=== PATIENT | male | born 1935 | race Caucasian/White ===

== ENCOUNTER 2016-09-04 11:04 | Inpatient (IN) | payer MEDICARE, OTHER ==
--- NOTE | ~2016-09-04 | HP ---
History And Physical [id number] [facility] [place]. [address] NAME: DOC GREENBERG : 36 STATUS : ADM Александр PAT#: [id number] AGE: 80 ADM/REG DATE : 09/04/16 MR#: [id number] REPORT SERV DATE: 09/04/16 DICTATED BY: ZANE LOZA DATE: 09/04/16 REPORT STATUS : Draft TRANSCRIBED BY: MODL DATE: 09/04/16 DATE OF ADMISSION: 09/04/2016 CHIEF COMPLAINT: Shortness of breath. HISTORY OF PRESENT ILLNESS: The patient is a very pleasant 80-year-old white male. He is hard of hearing, so much of my communication is with his granddaughter who is at bedside. She does live with the patient. Apparently, he became ill about a week ago Sunday 9 days prior to arrival, he developed some lower extremity edema and some orthopnea. He then developed a cough, congestion, and was seen in Urgent Care Clinic on that following . At that time, he was given some steroids, antibiotic, and ultimately sent out. He then returned to the clinic yesterday, was given another steroid shot, again an antibiotic, and sent home on a prednisone taper. He has had coughing. He does not really cough much in the way of sputum, it is clear. He has had no fever, no chills, no nausea, vomiting, or diarrhea. No real abdominal pain. No chest pain. He has had leg swelling since about 9 days ago which involves his leg up to about the mid thigh. He has had orthopnea and PND and despite the above measures to treat the bronchitis, he has failed to improve. He has no known history of heart failure. His last EF however was diminished at 42% in April of 2016 when he was here for an episode of GI bleeding. At that time, he had some 6 endoscopy procedures for an ulcer that bled with a visible vessel. In addition, he had an episode of atrial fibrillation which was thought to be new onset with RVR. He was deemed not a candidate for anticoagulation at that time due to extensive GI bleeding and multiple transfusions. He does still have atrial fibrillation and is primarily under rate control, management plan with no plans for anticoagulation. PAST MEDICAL HISTORY: 1. CKD with baseline creatinine around 2. 2. Atrial fibrillation, not on anticoagulation. 3. Diabetes mellitus. 4. Hypertension. 5. Osteoarthritis. 6. Peptic ulcer disease with multiple endoscopies requiring blood transfusion back in 03/2016. 7. Obstructive sleep apnea, but does not wear CPAP but wears nocturnal oxygen at 2 L. 8. Gout. 9. Hard of hearing. SURGICAL HISTORY: Carpal tunnel release, cataract repair, and a TURP. SOCIAL HISTORY: He is a nondrinker, nonsmoker. He lives with a granddaughter. FAMILY HISTORY: Father with hypertension, heart disease, and dementia. HOME MEDICATIONS: Reviewed and attached. REVIEW OF SYSTEMS: History And Physical [address] [address] NAME: DOC GREENBERG : 37 STATUS : ADM Александр PAT#: [id number] AGE: 80 ADM/REG DATE : 09/04/16 MR#: [id number] REPORT SERV DATE: 09/04/16 DICTATED BY: ZANE LOZA DATE: 09/04/16 REPORT STATUS : Draft TRANSCRIBED BY: CRYSTAL DATE: 09/04/16 Full 10-point review of systems obtained with pertinent positives already mentioned in the HPI. PHYSICAL EXAMINATION: VITAL SIGNS: Blood pressure 131/74, pulse 85, respiratory rate 18, sats are 98% on 2 L, and temperature is 97.2. GENERAL: Obese white male. HEENT: Normocephalic, atraumatic. Throat is clear. NECK: Supple. HEART: Regular rate and rhythm. LUNGS: He has rhonchorous breath sounds but he also has expiratory wheezing noted about assisted up the lung field and some very discreet crackles at the bases. ABDOMEN: Soft, nontender, nondistended. EXTREMITIES: Warm and dry. He has 2+ pitting edema to about the mid thigh. NEUROLOGIC: He is alert. He is hard of hearing. He is oriented to person, place, and time. He answers questions appropriately. He moves all four extremities symmetrically. LABORATORY AND X-RAY: H and H 9.2 and 27.6, white count is 6.8, and platelets 240. Troponin is 0.06. BNP is 811. Coags are normal. Sodium 135, potassium 4.9, chloride 95, CO2 of 28, BUN and creatinine 38 and 2.17. Glucose 236. Troponin 0.06. EKG shows atrial fibrillation but rate controlled. No acute ST-T wave changes. ASSESSMENT/PLAN: 1. Hypoxemic respiratory failure with evidence of pulmonary edema on chest x-ray. Lower extremity edema. Elevated cardiac BNP. Orthopnea and PND. Certainly raises suspicion that these symptoms could be due to heart failure despite wheezing which could certainly be cardiac. I think it is reasonable to treat the patient with heart failure exacerbation symptoms. We will repeat his echo since he has a troponin of 0.06 and new onset heart failure which he has not had in the past. We will also diurese him overnight. We will add a beta-sierra if his heart rate will tolerate it. I would not start an OG as he has chronic kidney disease at this point. We will monitor in's and out's, daily weights, and see if he responds to diuresis. We will do two more sets of cardiac enzymes and place him on a monitored bed. Repeat his EKG in the morning. 2. Possible pneumonia versus bronchitis. The patient has had cough, congestion, however, he has no white count nor fever. Some of his symptoms are consistent with heart failure. I think we still have to consider based on his chest x-ray findings and the fact that he is wheezing on exam. I am going to get a procalcitonin, some sputum cultures, blood cultures. Repeat his chest x-ray tomorrow after diuresis and see how his chest x-ray looks. I will cover him overnight for pneumonia just to be certain that we are covering all the possibilities here. He was on a prednisone taper. I am going to go ahead and complete his taper while he is here. This was started for possible bronchitis or reactive airway disease. Also place him on some DuoNebs. Hopefully with diuresis, his symptoms will improve and we can simplify his regimen and have a clear picture of the exact etiology. 3. CKD stable at baseline. We will need to follow closely with diuresis. 4. History of atrial fibrillation, deemed not a candidate for anticoagulation given significant GI bleeding in the past. Currently rate controlled is our only option. He History And Physical [address] [place]. [address] NAME: DOC GREENBERG : 37 STATUS : ADM Александр PAT#: [id number] AGE: 80 ADM/REG DATE : 09/04/16 MR#: [id number] REPORT SERV DATE: 09/04/16 DICTATED BY: ZANE LOZA DATE: 09/04/16 REPORT STATUS : Draft TRANSCRIBED BY: CRYSTAL DATE: 09/04/16 is currently on Cardizem as well as digoxin. He is going to get a low-dose beta sierra for possible heart failure. We will see how his heart rate tolerates it if his heart rate drops below 60, then we will hold his calcium channel sierra. We will continue with plan for rate control. 5. GISELE, on nocturnal O2. 6. Diabetes mellitus. We will add level 2 sliding scale. 7. History of hypertension. 8. History of significant GI bleeding in 03/2016. Continue PPI therapy b.i.d. 9. Deep venous thrombosis prophylaxis with subcutaneous heparin. 10.Disposition pending above aforementioned plan and workup. ZURI/CRYSTAL Zane Loza M.D. / [id number] CC: Zane Loza M.D.
--- NOTE | ~2016-09-04 | IDS ---
Interim Discharge Summary [facility] [address] [place]. [address] NAME: DOC GREENBERG : 37 STATUS : ADM IN PAT#: [id number] AGE: 80 ADM/REG DATE : 09/04/16 MR#: [id number] REPORT SERV DATE: 09/18/16 DICTATED BY: IGNACIO KU DATE: 09/18/16 REPORT STATUS : Draft TRANSCRIBED BY: MODL DATE: 09/18/16 ADMISSION DATE: 09/04/2016 DISCHARGE DATE: CURRENT HOSPITAL DIAGNOSES: 1. Encephalopathy, multifactorial. 2. Congestive heart failure. 3. Chronic kidney disease. 4. Atrial fibrillation. 5. Diabetes. 6. Obstructive sleep apnea. 7. Hypertension. 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 No acute intracranial pathology. Mild motion degraded exam of the posterior fossa and skull base. CURRENT PHYSICAL FINDINGS AND HPI: Please see initial dictated H and P by Dr. Beckford as well as interim summary by Dr. Jackman on the and summary by myself on the . This dictation will continue from that point. The patient had been evaluated by Renal and by Cardiology. Arrangements have been made for placement at [facility]. He had repeat speech therapy evaluation. He was cleared to take p.o. and the patient was scheduled to go to [facility]. However, at that time, he became acutely confused and the transfer was held. He was rescanned re-screened for possible etiologies at that time and an ABG, chest x-ray, and UA were done. His urinalysis was suggestive of UTI. He was started on appropriate treatment cultures, not grown at any significant pathogens. Renal continued to follow and adjusted his diuretics pending his intake, his heart failure and his renal function numbers. He also has ammonia checked which was normal. On the , after talking further with family, a CT scan was done because he has atrial fib, not on anticoagulants secondary to GI bleed and there was no abnormality noted. His diuretics were continued, p.r.n. Ativan was given for agitation. On the , his diuretics were further titrated and he was placed on p.o. antibiotics. On the , he required some mild electrolyte replacement. He was slowly improving on his cognitive abilities and ability to follow commands. He still was eating very minimal. On the , after a long discussion with his granddaughter and power of employment attorney, she requests GI evaluation for feeding tube placement as he has had no significant intake over the majority of his hospital stay given his unstable medical condition initially when he came in and his onset of confusion and inability to eat at this time. Pending GI's evaluation and tube placement, he will go to [facility] for rehab after decision is made with continued adjustment of his diuretics per Renal. TLF/MODL Interim Discharge Summary [address] [address] NAME: DOC GREENBERG : 37 STATUS : ADM IN PAT#: [id number] AGE: 80 ADM/REG DATE : 09/04/16 MR#: [id number] REPORT SERV DATE: 09/18/16 DICTATED BY: IGNACIO KU DATE: 09/18/16 REPORT STATUS : Draft TRANSCRIBED BY: MODL DATE: 09/18/16 Ignacio Ku M.D. / [id number] CC: Ignacio Ku M.D.
--- NOTE | ~2016-09-04 | IDS ---
Interim Discharge Summary [facility] [address] [place]. [address] NAME: DOC GREENBERG : 37 STATUS : ADM IN [facility]#: [id number] AGE: 80 ADM/REG DATE : 09/04/16 MR#: [id number] REPORT SERV DATE: 09/11/16 DICTATED BY: ROLO SALES DATE: 09/11/16 REPORT STATUS : Draft TRANSCRIBED BY: MODL DATE: 09/11/16 ADMISSION DATE: 09/04/2016 DISCHARGE DATE: CONSULTING PHYSICIANS: Dr. Fox for Cardiology, he signed off, and Dr. Mohan for Renal and is still on the case. INTERIM DIAGNOSES: 1. Acute on chronic hypoxic respiratory failure. 2. Acute on chronic systolic congestive heart failure. 3. Acute kidney injury on chronic kidney disease 3. 4. Hypertension. 5. Coronary artery disease. 6. Atrial fibrillation. 7. Benign prostatic hypertrophy. 8. Diabetes mellitus with episodes of hypoglycemia, resolved. 9. Obstructive sleep apnea. 10.History of GI bleed and peptic ulcer disease. 11.Status post hypokalemia. 12.History of right renal artery stenosis. 13.Hypothyroidism. DIAGNOSTIC EXAMS: Chest x-ray showing bilateral perihilar infiltrates, bilateral pleural fluid. Echocardiogram showing moderate left ventricular enlargement with severe decrease in systolic function, EF of 25%, moderate global hypokinesis, normal right ventricular size with decreased systolic function, mild pulmonary hypertension, biatrial enlargement, aortic valve sclerosis with moderate regurgitation, no evidence of apical thrombus, EF decreased from previous echo in 04/2016. Latest chest x-ray showing increasing volume of left pleural effusion and consolidation at the left base. HOSPITAL COURSE: Please refer to the H and P done by Dr. Beckford dated 09/04/2016. Briefly, this is a 80-year-old male, who comes in for shortness of breath. The patient has a history of CHF, chronic hypoxic respiratory failure, CAD, atrial fibrillation, CKD 3, diabetes and started becoming ill about a week ago. The patient started having some edema and orthopnea, developed a cough, went to an urgent care clinic, and was given antibiotics and steroids. The patient did not get better, he went back and given another steroid shot, and sent the patient with a different antibiotic. This time, it is Bactrim with a prednisone taper. The patient did not get better, went to the emergency room, and was admitted by Dr. Beckford. The patient was found to be in acute on chronic systolic congestive heart failure and acute on chronic hypoxic respiratory failure. The patient was diuresed, and the patient had the above echo. Cardiology consultation was done; however, they later on signed off as they cannot do much for the patient. Meanwhile, we got Renal involved and the kidney function was worsening, it went up to a size 3.11. After discussion with the POA, who is the granddaughter, they decided on DNR/DNI. We continued managing the fluids with diuretics, and the patient remarkably is improving. At one point, the patient was on non-rebreather mask and on renal failure, now he is on 4 L with a creatinine down to 2.45 and urinating Interim Discharge Summary [address] [place]. [address] NAME: DOC GREENBERG : 37 STATUS : ADM IN PAT#: [id number] AGE: 80 ADM/REG DATE : 09/04/16 MR#: [id number] REPORT SERV DATE: 09/11/16 DICTATED BY: ROLO SALES. DATE: 09/11/16 REPORT STATUS : Draft TRANSCRIBED BY: CRYSTAL DATE: 09/11/16 well. The patient had a speech evaluation and he failed that; however, the patient was so sick at that time and we are trying to get another speech eval as the family is trending towards no artificial nutrition to be given and they might just feed the patient. Right now, the patient is tolerating liquid diet, but we will not increase it until we get a repeat speech eval. The patient had periods of hypoglycemia at one point, where he was not eating anything, and that has resolved. The plan is for increasing the diet if able and continuing to diurese the patient as the kidney allows. Partner of mine will be following up the patient starting tomorrow morning. MASON/CRYSTAL Rolo Sales M.D. / [id number] CC: Rolo Sales M.D.
--- NOTE | ~2016-09-04 | CN ---
Consultation Report [facility] [address] [place]. [address] NAME: DOC GREENBERG : 37 STATUS : ADM IN PAT#: [id number] AGE: 80 ADM/REG DATE : 09/04/16 MR#: [id number] REPORT SERV DATE: 09/06/16 DICTATED BY: BLANCO MOHAN DATE: 09/06/16 REPORT STATUS : Draft TRANSCRIBED BY: MODL DATE: 09/06/16 NEPHROLOGY CONSULT DATE OF CONSULTATION: 09/05/2016 REFERRING PHYSICIAN: Cristopher Fox M.D. REASON FOR CONSULTATION: Chronic kidney disease with pulmonary edema. HISTORY OF PRESENT ILLNESS: This is a 80-year-old gentleman who had previously been followed by my partner, Dr. Oleksandr Fang at [facility]. Dr. Fang had not seen the patient in the office since 2013. The gentleman apparently was seen by one of our nurse practitioners on May 30, brought from the half-way facility, where he was rehabbing following GI bleeding and acute rapid atrial fibrillation with a lengthy admission at [facility] around that time. At the time of that presentation in our office, his creatinine was stable for him measured at an outside lab to be 1.82 mg/dL. That approximates his baseline creatinine within the past year. From [facility]'s old records, it ranges from 1.5-1.8 mg/dL. The gentleman presented to the emergency department with confusion and shortness of breath yesterday early. He had a 1-week history of progressive swelling of the lower extremities and worsening orthopnea type symptoms. He was found to have substantial edema in the lower extremities extending to the upper thighs. His cough and shortness of breath remained refractory to prescription antibiotics and steroid tapering pack. He was found to have bilateral interstitial infiltrates and dependent effusions. He was started on intravenous loop diuretics. Serum creatinine measured 2.17 at the time of admission and has slightly increased up to 2.27 mg/dL as of today. Urinalysis was fairly bland. The gentleman was seen in consultation by Dr. Fox with Cardiology service. He had undertaken echocardiogram with the gentleman earlier in the day and indeed the patient's left ventricular ejection fraction is found to be depressed down to 25% with consequent pulmonary hypertension as well with estimated right ventricular systolic pressure 44 mmHg and also noted to have biatrial enlargement and moderate aortic valve regurgitation. The gentleman is suspected of having ischemic cardiomyopathy with consequent acute upon chronic systolic congestive heart failure and the question is advanced to his granddaughter whether or not he ought to undertake coronary arteriography. We are consulted to assist with the renal insufficiency as well as diuresis which has been difficult today. The gentleman had a Frias catheter placed this morning and had 500 mL of postvoid residual within the bladder. Over the course of the day, his urinary output has been fairly poor including 50 mL of urinary output over the past 5 hours since his Frias collection was emptied earlier this evening. The patient presently is oriented to person only and has very little insight as to his current circumstances. The history that is presented today is taken from the notes in the chart as well as discussion with the patient's nurse this evening and also review of consultation records. The records from [facility] were also reviewed. Consultation Report [place] [id number] [facility] [place]. [address] NAME: DOC GREENBERG : 37 STATUS : ADM IN PAT#: [id number] AGE: 80 ADM/REG DATE : 09/04/16 MR#: [id number] REPORT SERV DATE: 09/06/16 DICTATED BY: BLANCO MOHAN DATE: 09/06/16 REPORT STATUS : Draft TRANSCRIBED BY: CRYSTAL DATE: 09/06/16 PAST MEDICAL HISTORY: 1. Chronic kidney disease stage 3 with baseline creatinine ranging 1.5-1.8 mg/dL, followed by Dr. Felipe Fang, but not seen in our office since 2013. 2. Benign prostatic hypertrophy. 3. Hyperlipidemia. 4. Hypertension. 5. Right-sided renal artery stenosis noted on duplex ultrasound of his kidneys in 2012. He has never had an intervention for this. 6. Hypertension. 7. Obstructive sleep apnea. 8. Remote skin cancer. 9. Remote tobacco abuse. 10.GI bleed in April 2016, status post endoscopic procedures x6 with eventual cautery of exposed vessel. 11.Rapid atrial fibrillation, for which he received no anticoagulation this past because of his GI bleeding. ALLERGIES: NO KNOWN DRUG ALLERGIES. HOME MEDICATIONS: 1. Albuterol nebulizers q.4-6 hours as needed for shortness of breath. 2. Allopurinol 300 mg daily. 3. Digoxin 0.125 mg daily. 4. Diltiazem 90 mg oral every 6 hours. 5. Furosemide 40 mg oral twice daily. 6. Gabapentin 300 mg oral 4 times daily. 7. Glimepiride 4 mg oral twice daily. 8. Lantus 10 units subcutaneously at bedtime. 9. Lactulose 15 mL oral daily. 10.Levothyroxine 25 mcg oral daily. 11.Nortriptyline 25 mg oral at bedtime. 12.Omeprazole 40 mg oral just prior to breakfast and supper. 13.Potassium chloride 20 mEq tablets, two of these taken twice daily. 14.Prednisone tapering dose pack. 15.Simvastatin 40 mg oral at bedtime. 16.Bactrim double strength 1 tablet oral twice daily for 10 days. This was started on 08/30/2016 and the last dosage taken was yesterday morning at 8:30 on September 04. SOCIAL HISTORY: He stays with his granddaughter who apparently has durable power of immigration attorney. He is a previous smoker. He does not abuse alcohol or any illicit substances. FAMILY HISTORY: He had a sister with coronary artery disease. His mother had type 2 diabetes. His father had hypertension and cardiac disease. REVIEW OF SYSTEMS: Consultation Report [place] [id number] [facility] [place]. [address] NAME: DOC GREENBERG : 37 STATUS : ADM IN [facility]#: [id number] AGE: 80 ADM/REG DATE : 09/04/16 MR#: [id number] REPORT SERV DATE: 09/06/16 DICTATED BY: BLANCO MOHAN DATE: 09/06/16 REPORT STATUS : Draft TRANSCRIBED BY: CRYSTAL DATE: 09/06/16 Fairly unreliable and the patient is totally disoriented. He denied any pain at this time. He was complaining of swelling in his legs. He indicates that he is still coughing and having some shortness of breath. Basically, review of systems beyond this point was unreliable and noncontributory. PHYSICAL EXAMINATION: VITAL SIGNS: Temperature 96.9, respiratory rate 18, heart rate 66, blood pressure 144/65. GENERAL: Chronically ill-appearing, elderly gentleman, who is oriented to person only, in no distress at this time. He has a soft mittens over his hands because apparently he was trying to pull out IVs and trying to pull out his Frias catheter earlier tonight. HEENT: Normocephalic, atraumatic. External ears and nose normal. Sinuses nontender. Oropharynx, mucous membranes are dry, pale, free of any ulcerations or exudates. Eye exam, conjunctivae free of any hemorrhages or exudates. Sclerae anicteric. Pupils equal, round, and reactive to light. NECK: Supple. Easily movable without meningismus. No palpable masses or nodules. LYMPHATIC: Anterior-posterior neck, supraclavicular and abdominal regions were free lymphadenopathy. RESPIRATORY: Some paradoxical motion and increased effort of breathing noted. Intermittent wet sounding cough is noted. Auscultation reveals bibasilar crackles. There are some coarse sounds as well. CARDIOVASCULAR: Heart sounds are largely obscured by his loud coarse breath sounds. Irregular rate and rhythm were appreciated which seemed to be rate controlled at this time. He has 3+ pitting edema extending from the feet all the way through the upper thighs. He has positive jugular venous distention with the head of the bed elevated up to about 45 degrees if not higher. ABDOMEN: Protuberant, tympanitic to percussion. Positive bowel sounds noted throughout with auscultation. No evident hepatomegaly or splenomegaly. SKIN: No rashes, breakdown, discoloration or cyanosis. Turgor was within normal limits. STUDIES: Chest x-ray taken yesterday morning reveals bilateral central as well as dependent infiltrates. Central congestion noted. Positive calcific aortic knob noted. Positive bilateral effusions noted. Echocardiogram demonstrated depressed left ventricular ejection fraction estimated 25%. He is noted to have a depressed right ventricular systolic function as well and moderate estimated pulmonary hypertension as well as moderate aortic regurgitation. Also noted to have bhcm-ci-lwzggssl mitral regurgitation. He was noted to have atrial fibrillation at that time. CHEMISTRY: Sodium 137, potassium 4.8, chloride 97, CO2 29, BUN 42, creatinine 2.27, troponin I 0.05. B-type nitrate peptide yesterday 811. CBC; white cell count 10, hemoglobin 9, platelets 283. Flu screening studies were negative. Urinalysis: Specific gravity 1.01, pH 5, negative protein, negative glucose, negative ketones, small hemoglobin, negative leukocyte esterase. Microscopy was essentially bland, except for 6 hyaline casts per low power field. IMPRESSION: Consultation Report [facility] [address] [place]. [address] NAME: DOC GREENBERG : 37 STATUS : ADM IN PAT#: [id number] AGE: 80 ADM/REG DATE : 09/04/16 MR#: [id number] REPORT SERV DATE: 09/06/16 DICTATED BY: BLANCO MOHAN DATE: 09/06/16 REPORT STATUS : Draft TRANSCRIBED BY: CRYSTAL DATE: 09/06/16 1. Acute kidney injury with noted positive retention overnight, last night with 500 mL postvoid residual and the Frias was placed. However, he has been oliguric since the Frias catheter was placed and this is on frequent Bumex IV boluses at this time. Consideration for cardiorenal syndrome versus postobstructive injury to be undertaken. 2. Acute volume overload with peripheral edema and also pulmonary congestion and orthopnea. Clearly demonstrated on echocardiogram to have acute upon chronic systolic congestive heart failure. 3. Suspected ischemic cardiomyopathy causing acute congestive heart failure. 4. Pulmonary edema secondary to acute congestive heart failure. 5. 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 Uncertain if he has had acute CHILD AND ADOLESCENT THERAPIST event. No significant evidence to suggest uremic encephalopathy at this time. 6. Other past medical history and chronic problems as outlined above including chronic kidney disease stage III, baseline creatinine 1.5-1.8 mg/dL. PLAN/RECOMMENDATION: 1. Loop diuretic, which he is presently undertaking. I am going to increase the frequency to q.6 hours Bumex 2 mg IV. 2. Check liver studies and albumin level tomorrow. Consider salt-poor albumin infusions to coincide with Bumex infusions to improve diuresis. 3. Consider Bumex continuous infusion. 4. Spot urine chemistries for fractional secretions of sodium and urea tomorrow. 5. Daily lab work to reassess the need for renal replacement therapy. We will need to discuss with his durable power of immigration attorney whether it is appropriate for him. 6. He will be very high risk for worsening acute kidney injury in the setting of IV contrast exposure. Given the altered mental status that he has, I am not sure that he would be safe to consider as even a temporary dialysis candidate. Certainly this can be re-evaluated on a daily basis. I appreciate being consulted in the care of this acutely on complicated patient. Our service will follow carefully. BELÉN Blanco Mohan M.D. / [id number]
--- NOTE | ~2016-09-04 | EGD ---
EGD REPORT [facility] [address] [place] [address] NAME: JAMES LEACH : 37 STATUS : ADM IN PAT#: [id number] AGE: 80 ADM/REG DATE : 09/04/16 MR#: [id number] REPORT SERV DATE: 09/20/16 DICTATED BY: VIOLET CALVO DATE: 09/20/16 REPORT STATUS : Draft TRANSCRIBED [facility]: [facility] DATE: 09/20/16 [facility] Patient Name: James Leach Date of : 1935 Attending MD: VIOLET CALVO MD Procedure Date No Time: 09/20/2016 Procedure: Upper GI endoscopy Indications: Place PEG because patient is unable to eat, Place PEG due to neurological disorder causing impaired swallowing Medicines: as per anesthesia Complications: No immediate complications. Procedure: Pre-Anesthesia Assessment: - ASA Grade Assessment: III - A patient with severe systemic disease. After obtaining informed consent, the endoscope was passed under direct vision. Throughout the procedure, the patient's blood pressure, pulse, and oxygen saturations were monitored continuously. The GIF [id number] was introduced through the mouth, and advanced to the third part of duodenum. The upper GI endoscopy was accomplished without difficulty. The patient tolerated the procedure well. Findings: The examined esophagus was normal. The entire examined stomach was normal. The cardia and gastric fundus were normal on retroflexion. The examined duodenum was normal. The patient was placed in the supine position for PEG placement. The stomach was insufflated to appose gastric and abdominal omalley. A site was located in the body of the stomach with good transillumination for placement. The abdominal wall was marked and prepped in a sterile manner. The area was anesthetized with 3 mL of 1% lidocaine. The trocar needle was introduced through the abdominal wall and into the stomach under direct endoscopic view. A snare was introduced through the endoscope and opened in the gastric lumen. The guide wire was passed through the trocar and into the open snare. The snare was closed around the guide wire. The endoscope and snare were removed, pulling the wire out through the mouth. A skin incision was made at the site of needle insertion. The externally removable 24 Fr EndoVive Safety gastrostomy tube was lubricated. The G-tube was tied to the guide wire and pulled through the mouth and into the stomach. The trocar needle was removed, and the gastrostomy tube was pulled out from the stomach through the skin. The external bumper was attached to the gastrostomy tube, and the tube was cut to remove the guide wire. The final position of the EGD REPORT [address] [place]. [address] NAME: JAMES LEACH : 36 STATUS : ADM IN [facility]#: [id number] AGE: 80 ADM/REG DATE : 09/04/16 MR#: [id number] REPORT SERV DATE: 09/20/16 DICTATED BY: VIOLET CALVO DATE: 09/20/16 REPORT STATUS : Draft TRANSCRIBED BY: [facility] DATE: 09/20/16 gastrostomy tube was confirmed by relook endoscopy, and skin marking noted to be 2.5 cm at the external bumper. The final tension and compression of the abdominal wall by the PEG tube and external bumper were checked and revealed that the bumper was loose and lightly touching the skin and that the PEG balloon was loose and lightly touching the stomach. The feeding tube was capped, and the tube site cleaned and dressed. Impression: - Normal esophagus. - Normal stomach. - Normal examined duodenum. - An externally removable PEG placement was successfully completed. Recommendation: - Please follow the post-PEG recommendations. Procedure Code(s): --- Professional --- 63292, Esophagogastroduodenoscopy, flexible, transoral; with directed placement of percutaneous gastrostomy tube Diagnosis Code(s): --- Professional --- R63.3, Feeding difficulties Z43.1, Encounter for attention to gastrostomy R29.81, Other symptoms and signs involving the nervous system R13.10, Dysphagia, unspecified CPT copyright 2013 [employer]. All rights reserved. The codes documented in this report are preliminary and upon platen builder up review may be revised to meet current compliance requirements. VIOLET CALVO MD 09/20/2016 1:49 PM This report has been signed electronically. Number of Addenda: 0 Note Initiated On: 09/20/2016 1:11 PM Scope Withdrawal Time 0 hours 0 minutes 0 seconds [address] [place] [address]
--- NOTE | ~2016-09-04 | CN ---
Consultation Report [facility] [address] [place]. [address] NAME: DOC GREENBERG : 37 STATUS : ADM IN PAT#: [id number] AGE: 80 ADM/REG DATE : 09/04/16 MR#: [id number] REPORT SERV DATE: 09/20/16 DICTATED BY: VIOLET CALVO DATE: 09/19/16 REPORT STATUS : Draft TRANSCRIBED BY: MODL DATE: 09/19/16 DATE OF CONSULTATION: 09/19/2016 HISTORY OF PRESENT ILLNESS: This is a 80-year-old white male with severe CHF who has been in hospital for about two weeks. Now with atrial fibrillation, on treatment, anticoagulation not used in view of the fact that he had active ulcer bleed in April. Multiple endoscopies done at that time by Dr. Alberts's, subsequently Dr. Dsa had cauterized vessel and gastric ulcer. He has had no recurrent bleeding. Also, has history of hypertension. He is diabetic. Has obstructive sleep apnea. History of gout. Has acute on chronic kidney failure being followed by [facility]. Not felt to be a dialysis candidate. Also some encephalopathy with no acute changes apparently noted on CT on this admission. SOCIAL HISTORY: Negative EtOH or nicotine. FAMILY HISTORY: Positive for colon cancer. He has had very inadequate p.o. intake during his hospitalization. He did not pass a swallowing study a week ago, but has continued to have failure to thrive and poor intake. He was on Levaquin for UTI. Current hemoglobin is 10.8 with a white count of 7000, platelet count of 198,000. PHYSICAL EXAMINATION: GENERAL: An elderly white male, appear hard of hearing. Somewhat somnolent. HEENT: Anicteric. NECK: Negative. CHEST: Few scattered rales. HEART: Irregular rhythm. ABDOMEN: Soft. No marked distention. No tenderness. Bowel sounds are present. EXTREMITIES: There is no marked edema. NEUROLOGIC: Pertinent for encephalopathy, also hard of hearing. ASSESSMENT: 1. Severe congestive heart failure. Has been followed by Cardiology up until yesterday. 2. Atrial fibrillation. 3. Hypertension. 4. Diabetes mellitus. 5. Obstructive sleep apnea. 6. Gout. 7. Acute on chronic renal failure. 8. Past history of peptic ulcer disease with bleed, April 2016. 9. Encephalopathy. 10.Inadequate p.o. intake, has passed a swallowing study, however. SUGGESTION: I had a long discussion with the granddaughter who is the power of associate attorney, also with his sister, and also with the patient. They all seem in agreement to proceed with PEG placement. Did describe increased risk in particularly with aspiration due to multiple comorbidities. Nevertheless, we will plan for PEG placement tomorrow. Consultation Report [place] [id number] [place]. [address] NAME: DOC GREENBERG : 36 STATUS : ADM IN PAT#: [id number] AGE: 80 ADM/REG DATE : 09/04/16 MR#: [id number] REPORT SERV DATE: 09/20/16 DICTATED BY: VIOLET CALVO DATE: 09/19/16 REPORT STATUS : Draft TRANSCRIBED BY: CRYSTAL DATE: 09/19/16 Thank you very much for the consultation. TERI/CRYSTAL Violet Calvo M.D. / [id number] CC: Vaishnavi Beckford M.D.
--- NOTE | ~2016-09-04 | DS ---
Discharge Summary [place] [address] [place]. [address] NAME: DOC GREENBERG : 37 STATUS : DIS IN PAT#: [id number] AGE: 80 ADM/REG DATE : 09/04/16 MR#: [id number] REPORT SERV DATE: 09/23/16 DICTATED BY: TORRES MARI DATE: 09/22/16 REPORT STATUS : Draft TRANSCRIBED BY: MODL DATE: 09/22/16 ADMISSION DATE: 09/04/2016 DISCHARGE DATE: 09/22/2016 DISCHARGE DIAGNOSES: 1. Ymkmj-qw-pxkoomw systolic heart failure with an ejection fraction of 25%. 2. Acute kidney injury on chronic kidney disease, stage 3-4 with most recent creatinine 2.56. 3. Moderate protein calorie malnutrition status post PEG tube placement performed on 09/20/2016. 4. Multifactorial metabolic acute encephalopathy which is resolved. 5. Chronic atrial fibrillation. 6. Chronic respiratory failure and obstructive sleep apnea. 7. History of hypertension. 8. Diabetes type 2, well controlled blood sugars. DISCHARGE MEDICATIONS ARE FOLLOWS: Cardizem 90 mg every hours, Abreva 10% 2 g applied topically to blister, NovoLog level 2 sliding scale a.c. and h.s., Synthroid 25 mcg daily, Toprol-XL 25 mg daily, Nystatin oral suspension 5 mils three times a day to stop on 09/25/2016, Protonix 40 mg twice a MiraLAX one packet daily, Demadex 40 mg daily, DuoNeb inhaled every four hours while awake, Tylenol 650 mg every four hours p.r.n., Dulcolax suppositories 10 mg p.r.n. for constipation, hypoglycemia protocol Ativan 0.5 mg p.o. b.i.d. p.r.n., lipase protease amylase 5000 units one cap p.r.n., Zofran 4 mg every four hours p.r.n. for nausea, sodium bicarb 325 mg p.r.n., nitroglycerin tablets 0.4 mg sublingual p.r.n. for chest pain, digoxin 0.125 mg p.o. daily, potassium chloride 20 mEq two tabs daily, lactulose 15 mL daily, Zocor 40 mg at bedtime. HISTORY OF PRESENT ILLNESS: This is a pleasant 80-year-old white male, who was originally admitted on 09/04/2016 for chief complaint shortness of breath. Please see the initial H and P of Dr. Vaishnavi Beckford as the patient was admitted to the Hospitalist Service for further evaluation and treatment. Please also see the interim discharge summaries of Dr. Santosh Jackman and Dr. Ignacio Howell, as this discharge summary will cover the dates of 09/19 until 09/22/2016. CONSULTANTS DURING THIS ADMISSION: 1. Cardiology, Cristopher Fox M.D. 2. Nephrology, Jose Mohan M.D. 3. Gastroenterology, Mandeep Jolley M.D. HOSPITAL COURSE: I began seeing the patient on 09/19/2016 where the patient, from a heart failure standpoint, had improved and was in a stable volume status. He could not, however, tolerate ACEs or arbs given his chronic kidney disease. His antibiotics were discontinued. He had been having some difficulty with nutrition. After discussion with the family and patient, it was determined that a PEG tube will be placed going forward to allow adequate nutrition and a disposition to go to a halfway facility when this was done. Consultation was placed to GI, Dr. Mandeep Jolley, who as stated above took the patient for Discharge Summary [address] [address] NAME: DOC GREENBERG : 37 STATUS : DIS IN PAT#: [id number] AGE: 80 ADM/REG DATE : 09/04/16 MR#: [id number] REPORT SERV DATE: 09/23/16 DICTATED BY: TORRES MARI DATE: 09/22/16 REPORT STATUS : Draft TRANSCRIBED BY: MODL DATE: 09/22/16 upper GI endoscopy and PEG placement that was performed on 09/20/2016. Afterwards, patient's tube feeding was initiated and advanced to a goal rate of 40 mils an hour Nepro tube feeding. He has tolerated this well. His mental status has improved. Each day, he is looking forward to going to halfway facility for rehab. Attempted removal of his Frias catheter, however, and afterwards he did develop some acute urinary retention, which necessitated replacement of the Frias catheter, so he will be going to the facility with a Frias and will continue bladder training with the hopes that the Frias will be removed in a few days. Overall, the patient is in agreement with the plan going forward. Questions were answered at bedside with the patient with his sister and granddaughter. I appreciate the accounting policy consultant's help on this patient's hospitalization. He will have an outpatient lab work to be faxed to Nephrology office for followup and a two-week appointment as well. Please note greater than 30 minutes was spent on this discharge for medication teaching, further disposition and followup planning. JOSE ANTONIO/CRYSTAL Torres Mari NP / [id number] CC: Ashley Coffey M.D. Unknown
--- NOTE | ~2016-09-04 | CN ---
Consultation Report [facility] [address] [place]. [address] NAME: DOC GREENBERG : 36 STATUS : ADM IN PAT#: [id number] AGE: 80 ADM/REG DATE : 09/04/16 MR#: [id number] REPORT SERV DATE: 09/05/16 DICTATED BY: PAPO DUENAS DATE: 09/05/16 REPORT STATUS : Draft TRANSCRIBED BY: MODL DATE: 09/05/16 CARDIOLOGY CONSULT DATE OF CONSULTATION: REFERRING REASON: Question of ischemic workup in the setting of heart failure exacerbation and decline of ejection fraction. HISTORY OF PRESENT ILLNESS: This is a pleasant 80-year-old white obese gentleman with complex past medical history, who has been admitted in recently to Hospitalist Service with several one week lasting are dyspnea on exertion with minimal activity, progressive lower extremity edema, increased abdominal girth, and some cough. He was found to be in congestive heart failure with brain natriuretic peptide up to 817 with pulmonary edema on the chest x-ray and mild troponin leak. Echocardiogram earlier today interpreted by me reveals mild LV enlargement with severe decrease in systolic function, EF 25%, global hypokinesis, with RVSP of 44 mmHg, biatrial enlargement, and moderate aortic valve regurgitation. Ejection fraction had decreased compared to previous echocardiogram from April 2016. I reviewed available records and discussed situation with his granddaughter named Radha who is reportedly medical power of judo instructor. The patient lives with her. According to the nurse and granddaughter, the patient has been intermittently confused today, oriented only to person. He has decreased urine output, and a Frias catheter has been placed. He denied any chest pain, but has chronic hypoxic respiratory failure. He has been reportedly oxygen dependent since the fall when he left the Hospitalist Service. At that time, he was diagnosed with atrial fibrillation, but due to the recurrent severe GI bleeding requiring transfusion, no anticoagulation was recommended. The patient continued to be on 2 L of oxygen at home. He denied any palpitations, but has been oriented to person and due to the decreased hearing communication is difficult with him. The rest of review of systems is negative. PAST MEDICAL HISTORY: 1. Congestive heart failure with EF 40% in 04/2016 with decline of ejection fraction 25% currently. 2. Chronic atrial fibrillation, initially with a rapid ventricle response. 3. No anticoagulation due to the recurrent GI bleeding. Last one in the Fall of 2016 requiring transfusion. 4. Peptic ulcer disease. 5. History of chronic kidney disease. 6. History of diabetes mellitus. 7. History of obesity. 8. Hypertension. 9. Obstructive sleep apnea. SOCIAL HISTORY: The patient is . He lives with his granddaughter. He never smoked. He denies drinking alcohol or using street drugs. He is walking with a walker. Consultation Report [address] [address] NAME: DOC GREENBERG : 36 STATUS : ADM IN [facility]#: [id number] AGE: 80 ADM/REG DATE : 09/04/16 MR#: [id number] REPORT SERV DATE: 09/05/16 DICTATED BY: PAPO DUENAS DATE: 09/05/16 REPORT STATUS : Draft TRANSCRIBED BY: CRYSTAL DATE: 09/05/16 FAMILY HISTORY: Negative for sudden cardiac and premature coronary artery disease in the family. HOME MEDICATIONS: Albuterol, allopurinol 300 mg once a day, digoxin 0.125 mg once a day, Cardizem 90 mg every six hours, Lasix 40 mg twice at home, Neurontin 300 mg four times a day, Amaryl 4 mg twice a day, insulin Lantus, lactulose, Synthroid 25 mcg once a day, nortriptyline 25 mg once a day, omeprazole 40 mg once a day, potassium supplement, steroid taper which was started recently, and simvastatin 40 mg once a day. In the hospital, he was started on digoxin 0.125 mg once a day, Toprol-XL 12.5 mg once a day, and Bumex 1 mg every 8 hours. PHYSICAL EXAMINATION: GENERAL: Elderly obese gentleman, oriented to person, with some hearing difficulties, but in no acute distress with oxygen by nasal cannula, sitting in bed. HEENT: Pupils reactive to light and accommodation. Moist mucosa membrane. NECK: No JVD. Normal carotid upstroke. No carotid bruits. LUNGS: Decreased breath sounds bibasilar with diffuse wheezing. HEART: S1, S2. There is S3 and lateral displaced PMI. ABDOMEN: Obese, distended. EXTREMITIES: Lower extremities had 2+ edema up to the knee bilaterally with decreased pedal pulses bilaterally. SKIN: Warm with normal turgor. MS: No kyphosis. NEURO/PSY: Alert and oriented. Nonfocal. DATA: CBC remarkable for hemoglobin 9.2. Brain natriuretic peptide 817. Chest x-ray revealed cardiomegaly with bilateral perihilar infiltrates likely pulmonary edema. Troponin initially 0.06, now 0.06 and 0.05. Creatinine currently is 2.1 and BUN is 38. Electrocardiogram revealed atrial fibrillation initially with rapid ventricular response up to 101 beats per minute with some 0.[address] depression in anterolateral leads and poor R-wave progression in anterior leads, currently at 89 minutes beats per minute atrial fibrillation with poor R-wave progression anterior leads. Nonspecific ST-segment changes, but no obvious ischemia. An echocardiogram as above. ASSESSMENT AND PLAN: 1. Congestive heart failure, acute on chronic exacerbation with signs of pulmonary edema. 2. Chronic kidney disease. 3. Chronic persistent atrial fibrillation. Consultation Report [address] [place]. [address] NAME: DOC GREENBERG : 36 STATUS : ADM IN PAT#: [id number] AGE: 80 ADM/REG DATE : 09/04/16 MR#: [id number] REPORT SERV DATE: 09/05/16 DICTATED BY: PAPO DUENAS DATE: 09/05/16 REPORT STATUS : Draft TRANSCRIBED BY: CRYSTAL DATE: 09/05/16 4. Mental status changes. This is a difficult situation. I had a long discussion with granddaughter, is medical power of judo instructor, in the presence of the patient who is currently oriented only to person. I tried to explain them the difficult situation. He definitely needs to be aggressively diuresed which may further worsen his kidney function, likely the Nephrology will need to be involved. To allow us to do any ischemic workup as the patient's family wants, it will require coronary arteriogram. I suspect that the patient may have multivessel coronary artery disease, and there may not be any easy interventional options giving his multiorgan problem. Despite that, the family wants at the present time everything done. we will have to see how the patient will be responding to aggressive diuresis. He is unable to currently lie flat. He is full code. We will increase diuretics and ask the Nephrology to see him. Another difficulty is the fact that he is not on anticoagulation due to history of gastrointestinal bleeding. Any intervention will require likely use of some heparin also. Multiple questions answered. It is also possible that this decline of ejection fraction may be related to tachycardia-induced cardiomyopathy. We will follow the patient with you. RAJESH/CRYSTAL Papo Duenas M.D. / [id number] CC: Vaishnavi Beckford M.D. UNKNOWN
--- NOTE | ~2016-09-04 | DS ---
Discharge Summary [facility] [address] [place]. [address] NAME: DOC GREENBERG : 36 STATUS : ADM IN PAT#: [id number] AGE: 80 ADM/REG DATE : 09/04/16 MR#: [id number] REPORT SERV DATE: 09/14/16 DICTATED BY: KEVIN KU DATE: 09/14/16 REPORT STATUS : Draft TRANSCRIBED BY: MODL DATE: 09/14/16 ADMISSION DATE: 09/04/2016 DISCHARGE DATE: 09/14/2016 FINAL HOSPITAL DIAGNOSES: 1. Congestive heart failure with an ejection fraction of approximately 25%. 2. Chronic kidney disease. 3. Hypertension. 4. Coronary artery disease. 5. Atrial fibrillation. 6. Benign prostatic hypertrophy. 7. Diabetes. 8. Obstructive sleep apnea. 9. Hypothyroidism. CONSULTATIONS: Cardiology and Renal. PROCEDURES: As listed in the interim summary. CURRENT PHYSICAL FINDINGS AND HISTORY OF PRESENT ILLNESS: Please see initial dictated H and P by Dr. Beckford on 09/04/2016 as well as interim summary by Dr. Jackman on 09/11/2012. I took over the patient's care on the 09/12/2016 and will dictate from that point. The patient had progressed through his congestive heart failure episode. He was getting diuretics as directed by Nephrology. Creatinines were improving. His heart rate had been controlled. After discussion with family on 09/12/2016, they did want to proceed with rehab, so PT was consulted. Speech Therapy had also re-evaluated him for his swallowing and approved his diet. Wound care was following some minor wounds on his feet. His diuretics were adjusted on 09/13/2016, and the patient's only complaint at that time was some blisters in his mouth and some questionable thrush in his mouth. Zovirax and Mycostatin were prescribed. On the 09/14/2016, he was noted to have continued baseline confusion. He appeared in no acute distress. His room air saturation was 95%. Cardiology had nothing further to offer other than starting him on an aspirin. After Nephrology rounds and family visits if there are no concerns, he will be discharged to rehab as bed is available today. DISPOSITION: Discharged to rehab. MEDICATIONS: Cardizem 90 one per day, Abreva apply 5 times daily, sliding scale insulin level 2, levothyroxine 25, Toprol-XL 25, Mycostatin suspension swish and swallow t.i.d., Protonix 40, MiraLAX 1 packet daily, DuoNebs q.4 p.r.n., Tylenol p.r.n., Dulcolax p.r.n., glucose tablet p.r.n., sublingual nitroglycerin p.r.n., Zofran 4 mg oral p.r.n., albuterol nebs q.4 to 6 p.r.n., diuretics will be per Nephrology, and aspirin 325 one per day. TLF/MODL Discharge Summary [address] [place] [facility]. [address] NAME: DOC GREENBERG : 36 STATUS : ADM IN PAT#: [id number] AGE: 80 ADM/REG DATE : 09/04/16 MR#: [id number] REPORT SERV DATE: 09/14/16 DICTATED BY: KEVIN KU DATE: 09/14/16 REPORT STATUS : Draft TRANSCRIBED BY: MODL DATE: 09/14/16 Kevin Ku M.D. / [id number] CC: Kevin Ku M.D. UNKNOWN
[2016-09-04 10:43] LABS: ALLENS TEST Pos; BE (BASE EXCESS) 4.1 MEQ/L (0 +/- 2.5); CARBOXYHEMOGLOBIN 0.1 % (0-3); DEVICE NC; HCO3 (ACTUAL BICARBONATE) 28.8 MEQ/L (23-27); HEMOBLOGIN CONTENT 8.9 G/DL (14-18); INSTRUMENT SERIAL # 8087; METHEMOGLOBIN 0.3 % (0-3); O2 CONTENT 11.9 VOL% (18-24); OPERATOR ID 32214; PCO2 (CO2 TENSION) 44 MMHG (35-45); PO2 (O2 TENSION) 86 MMHG (79-93); SAMPLE Arterial; pH 7.43 (7.37-7.43)
[2016-09-04 11:04] LABS: BASOPHILS 0.1 %; BASOPHILS ABSOLUTE 0.01 10/3/uL (0.0-0.16); EOSINOPHILS 0 %; HEMATOCRIT 27.6 % (40.0-51.0); HEMOGLOBIN 9.2 g/dL (13.6-17.8); IMMATURE GRANULOCYTES 2.2 %; IMMATURE GRANULOCYTES ABSOLUTE 0.15 10/3/uL (0.0-0.11); LYMPHOCYTES ABSOLUTE 1.01 10/3/uL (0.67-4.30); MEAN CORPUS HGB CONC 33.3 g/dL (32.0-36.0); MEAN CORPUSCULAR HEMOGLOB 31.4 pg (26.0-34.0); MEAN PLATELET VOLUME 8.4 fL (9.2-13.0); MONOCYTES 5.6 %; MONOCYTES ABSOLUTE 0.38 10/3/uL (0.21-1.20); NEUTROPHILS 77.1 %; PLATELET COUNT 240 10/3/uL (150-400); RBC DISTRIBUTION WIDTH 16.6 % (12.0-16.0); RED CELL COUNT 2.93 10/6/uL (4.7-6.1); WHITE BLOOD CELLS 6.8 10/3/uL (4.5-10.5)
[~2016-09-04 11:04] MED LIST: AMARYL4 PO; COZ50 PO; KDUR10 PO; LANTUSCART SC; LEVOTHYROXIN25 MCG PO; LOPID6 PO; MAXIMUM D3 PO; NEUR300 PO; NOR25 PO; Z300 PO; ZOCOR40 PO
[2016-09-04 11:05] LABS: MANUAL DIFF NO %; MEAN CORPUSCULAR VOLUME 94.2 fL (80-100)
[2016-09-04 11:15] LABS: INTERNATIONAL NORMAL RATI 1.2 UNITS (-); PARTIAL THROMBO TIME 27.2 SEC (22.5-37.2); PROTIME (NOT ORD) 14.9 SEC (12.0-14.5)
[2016-09-04 11:21] LABS: LACTATE 1.7 MMOL/L (0.3-2.4)
[2016-09-04 11:21] LABS: INFLUENZA A SCREEN NEGATIVE (NEGATIVE); INFLUENZA B SCREEN NEGATIVE (NEGATIVE)
[2016-09-04 11:31] LABS: BUN (BLOOD UREA NITROGEN) 38 MG/DL (6-23); CALCIUM, SERUM 8.4 MG/DL (8.5-10.4); CHLORIDE, SERUM 95 MMOL/L (96-112); CO2 (CARBON DIOXIDE) 28 MMOL/L (24-34); CREATININE 2.17 MG/DL (0.70-1.30); GFR AFRICAN AMERICAN 32 ML/MIN (>=60); GFR NON AFRICAN AMERICAN 28 ML/MIN (>=60); SODIUM, SERUM 135 MMOL/L (135-148)
[2016-09-04 11:32] LABS: GLUCOSE, SERUM 236 MG/DL (60-99); POTASSIUM, SERUM 4.9 MMOL/L (3.5-5.3); TROPONIN I 0.06 NG/ML (<0.05)
[2016-09-04 11:33] LABS: CHEST PAIN PROFILE TAT 0 Hrs 32 Mins
[2016-09-04] MEDS ORDERED: Z300 PO (12:12)
[2016-09-04] MEDS ORDERED: LAN125 PO (12:13)
[2016-09-04] MEDS ORDERED: NEUR300 PO (12:15)
[2016-09-04] MEDS ORDERED: CARD90 PO (12:15)
[2016-09-04] MEDS ORDERED: DUONEB INH (12:16)
[2016-09-04] MEDS ORDERED: AMARYL4 PO (12:16)
[2016-09-04] MEDS ORDERED: LANTUS PO (12:17)
[2016-09-04] MEDS ORDERED: KLOR-CON M2020 MEQ PO (12:17)
[2016-09-04] MEDS ORDERED: ENULOSE PO (12:17)
[2016-09-04] MEDS ORDERED: L40 PO (12:17)
[2016-09-04] MEDS ORDERED: LEVOTHYROXIN25 MCG PO (12:18)
[2016-09-04] MEDS ORDERED: ZOCOR40 PO (12:18)
[2016-09-04] MEDS ORDERED: NOR25 PO (12:18)
[2016-09-04] MEDS ORDERED: PRILOSEC40 MG PO (12:18)
[2016-09-04] MEDS ORDERED: BACDS PO (12:19)
[2016-09-04] MEDS ORDERED: STERAP512 (12:20)
[2016-09-04 14:02] LABS: WBC (NOT ORDERED) (RFLEX) 0 (0-5)
[2016-09-04 14:26] LABS: ASCORBIC ACID (UR NOT ORDER) NEG (NEG); BILIRUBIN, URINE NEGATIVE (NEG); KETONE, URINE NEGATIVE (NEG); LEUKOCYTE ESTERASE(NOT OR NEG (NEG)
[2016-09-04 21:14] LABS: TROPONIN I 0.06 NG/ML (<0.05)
[2016-09-05 08:53] LABS: BASOPHILS 0.1 %; BASOPHILS ABSOLUTE 0.01 10/3/uL (0.0-0.16); EOSINOPHILS 0 %; HEMATOCRIT 28.8 % (40.0-51.0); IMMATURE GRANULOCYTES 1.1 %; IMMATURE GRANULOCYTES ABSOLUTE 0.11 10/3/uL (0.0-0.11); LYMPHOCYTES 10.3 %; LYMPHOCYTES ABSOLUTE 1.03 10/3/uL (0.67-4.30); MEAN CORPUSCULAR HEMOGLOB 30.2 pg (26.0-34.0); MEAN CORPUSCULAR VOLUME 96.6 fL (80-100); MEAN PLATELET VOLUME 8.5 fL (9.2-13.0); MONOCYTES 5.2 %; MONOCYTES ABSOLUTE 0.52 10/3/uL (0.21-1.20); NEUTROPHILS 83.3 %; NEUTROPHILS ABSOLUTE 8.32 10/3/uL (2.02-8.40); NUCLEATED RED BLOOD CELLS 0.7 /100WBC (0-0); PLATELET COUNT 283 10/3/uL (150-400); RBC DISTRIBUTION WIDTH 16.8 % (12.0-16.0); RED CELL COUNT 2.98 10/6/uL (4.7-6.1)
[2016-09-05 08:54] LABS: MANUAL DIFF NO %; MEAN CORPUS HGB CONC 31.3 g/dL (32.0-36.0)
[2016-09-05 09:10] LABS: BUN (BLOOD UREA NITROGEN) 42 MG/DL (6-23); CALCIUM, SERUM 8.5 MG/DL (8.5-10.4); CHLORIDE, SERUM 97 MMOL/L (96-112); CO2 (CARBON DIOXIDE) 29 MMOL/L (24-34); CREATININE 2.27 MG/DL (0.70-1.30); GFR AFRICAN AMERICAN 31 ML/MIN (>=60); GFR NON AFRICAN AMERICAN 26 ML/MIN (>=60); GLUCOSE, SERUM 84 MG/DL (60-99); POTASSIUM, SERUM 4.8 MMOL/L (3.5-5.3); SODIUM, SERUM 137 MMOL/L (135-148); TROPONIN I 0.05 NG/ML (<0.05)
[2016-09-05 09:50] LABS: PROCALCITONIN 0.24 ng/mL (<0.5)
[2016-09-06 02:21] LABS: CREATININE, URINE 64.6 MG/DL
[2016-09-06 02:45] LABS: INSTRUMENT SERIAL # 35151
[2016-09-06 02:46] LABS: ALLENS TEST Pos; BE (BASE EXCESS) -7.3 MEQ/L (0 +/- 2.5); CARBOXYHEMOGLOBIN 0.3 % (0-3); DEVICE NC; HCO3 (ACTUAL BICARBONATE) 18.3 MEQ/L (23-27); HEMOBLOGIN CONTENT 9.3 G/DL (14-18); METHEMOGLOBIN 0.3 % (0-3); O2 CONTENT 12.6 VOL% (18-24); OPERATOR ID 31631; PCO2 (CO2 TENSION) 37 MMHG (35-45); PO2 (O2 TENSION) 107 MMHG (79-93); SAMPLE Arterial; pH 7.31 (7.37-7.43)
[2016-09-06 03:31] LABS: BASOPHILS 0.2 %; BASOPHILS ABSOLUTE 0.03 10/3/uL (0.0-0.16); EOSINOPHILS 0 %; HEMATOCRIT 29.2 % (40.0-51.0); HEMOGLOBIN 9.1 g/dL (13.6-17.8); IMMATURE GRANULOCYTES 1.4 %; IMMATURE GRANULOCYTES ABSOLUTE 0.22 10/3/uL (0.0-0.11); LYMPHOCYTES 19.2 %; LYMPHOCYTES ABSOLUTE 2.94 10/3/uL (0.67-4.30); MEAN CORPUS HGB CONC 31.2 g/dL (32.0-36.0); MEAN CORPUSCULAR HEMOGLOB 30.6 pg (26.0-34.0); MEAN CORPUSCULAR VOLUME 98.3 fL (80-100); MEAN PLATELET VOLUME 8.4 fL (9.2-13.0); MONOCYTES 5.5 %; MONOCYTES ABSOLUTE 0.85 10/3/uL (0.21-1.20); NEUTROPHILS 73.7 %; NEUTROPHILS ABSOLUTE 11.28 10/3/uL (2.02-8.40); NUCLEATED RED BLOOD CELLS 1.8 /100WBC (0-0); PLATELET COUNT 274 10/3/uL (150-400); RBC DISTRIBUTION WIDTH 17.4 % (12.0-16.0); RED CELL COUNT 2.97 10/6/uL (4.7-6.1)
[2016-09-06 03:35] LABS: MANUAL DIFF NO %; WHITE BLOOD CELLS 15.3 10/3/uL (4.5-10.5)
[2016-09-06 03:50] LABS: A/G RATIO 0.6 (0.7-1.9); ALBUMIN 2.7 G/DL (3.5-5.0); CALCIUM, SERUM 8.5 MG/DL (8.5-10.4); CHLORIDE, SERUM 99 MMOL/L (96-112); CO2 (CARBON DIOXIDE) 25 MMOL/L (24-34); GLOBULIN 4.4 G/DL (2.5-4.1); SGOT(AST) 21 U/L (5-40); SGPT(ALT) 27 U/L (5-65); SODIUM, SERUM 136 MMOL/L (135-148); TOTAL PROTEIN 7.1 G/DL (6.0-8.5)
[2016-09-06 04:09] LABS: ALKALINE PHOSPHATASE 100 U/L (45-117); BUN (BLOOD UREA NITROGEN) 47 MG/DL (6-23); CREATININE 2.94 MG/DL (0.70-1.30); GFR AFRICAN AMERICAN 22 ML/MIN (>=60); GFR NON AFRICAN AMERICAN 19 ML/MIN (>=60); GLUCOSE, SERUM 127 MG/DL (60-99); POTASSIUM, SERUM 6.3 MMOL/L (3.5-5.3); TOTAL BILIRUBIN 0.3 MG/DL (0-1.2)
[2016-09-06 08:02] LABS: ALLENS TEST Pos; BE (BASE EXCESS) 0.4 MEQ/L (0 +/- 2.5); CARBOXYHEMOGLOBIN 0.3 % (0-3); DEVICE HFNC; HCO3 (ACTUAL BICARBONATE) 26.3 MEQ/L (23-27); HEMOBLOGIN CONTENT 9.9 G/DL (14-18); INSTRUMENT SERIAL # 35151; METHEMOGLOBIN 0.3 % (0-3); O2 CONTENT 13.7 VOL% (18-24); PCO2 (CO2 TENSION) 49 MMHG (35-45); PO2 (O2 TENSION) 143 MMHG (79-93); SAMPLE Arterial; pH 7.35 (7.37-7.43)
[2016-09-06 15:16] LABS: CALCIUM, SERUM 8.3 MG/DL (8.5-10.4); CHLORIDE, SERUM 100 MMOL/L (96-112); CREATININE 3.11 MG/DL (0.70-1.30); GFR AFRICAN AMERICAN 21 ML/MIN (>=60); GFR NON AFRICAN AMERICAN 18 ML/MIN (>=60); SODIUM, SERUM 140 MMOL/L (135-148)
[2016-09-06 15:18] LABS: BUN (BLOOD UREA NITROGEN) 54 MG/DL (6-23); CO2 (CARBON DIOXIDE) 30 MMOL/L (24-34); GLUCOSE, SERUM 48 MG/DL (60-99); POTASSIUM, SERUM 4.2 MMOL/L (3.5-5.3)
[2016-09-07 07:31] LABS: HEMATOCRIT 31.7 % (40.0-51.0); HEMOGLOBIN 10.2 g/dL (13.6-17.8); MEAN CORPUS HGB CONC 32.2 g/dL (32.0-36.0); MEAN CORPUSCULAR HEMOGLOB 31.3 pg (26.0-34.0); MEAN CORPUSCULAR VOLUME 97.2 fL (80-100); MEAN PLATELET VOLUME 8.7 fL (9.2-13.0); PLATELET COUNT 197 10/3/uL (150-400); RBC DISTRIBUTION WIDTH 17.4 % (12.0-16.0); RED CELL COUNT 3.26 10/6/uL (4.7-6.1); WHITE BLOOD CELLS 11.2 10/3/uL (4.5-10.5)
[2016-09-07 07:32] LABS: MANUAL DIFF YES %
[2016-09-07 07:44] LABS: BUN (BLOOD UREA NITROGEN) 53 MG/DL (6-23); CALCIUM, SERUM 8.1 MG/DL (8.5-10.4); CHLORIDE, SERUM 99 MMOL/L (96-112); CO2 (CARBON DIOXIDE) 31 MMOL/L (24-34); CREATININE 2.99 MG/DL (0.70-1.30); GFR AFRICAN AMERICAN 22 ML/MIN (>=60); GFR NON AFRICAN AMERICAN 19 ML/MIN (>=60); GLUCOSE, SERUM 84 MG/DL (60-99); POTASSIUM, SERUM 3.6 MMOL/L (3.5-5.3); SODIUM, SERUM 143 MMOL/L (135-148)
[2016-09-07 08:10] LABS: BAND NEUTROPHILS 1 %; LYMPHOCYTES 8 %; MONOCYTES 4 %; MONOCYTES ABSOLUTE (CALC) 0.45 10/3/uL (0.21-1.20); NEUTROPHILS ABSOLUTE (CALC) 9.86 10/3/uL (2.02-8.40); SEGMENTED NEUTROPHIL (0) 87 %; TOTAL NUCLEATED CELLS 100
[2016-09-07 08:11] LABS: ANISOCYTOSIS 1+ (5-10/OIF) (0-5/OIF); PLATELET ESTIMATE ADQ (ADEQUATE)
[2016-09-08 06:35] LABS: CALCIUM, SERUM 8.2 MG/DL (8.5-10.4); CHLORIDE, SERUM 97 MMOL/L (96-112); CO2 (CARBON DIOXIDE) 33 MMOL/L (24-34); CREATININE 2.74 MG/DL (0.70-1.30); GFR AFRICAN AMERICAN 24 ML/MIN (>=60); GFR NON AFRICAN AMERICAN 21 ML/MIN (>=60); POTASSIUM, SERUM 3.6 MMOL/L (3.5-5.3); SODIUM, SERUM 141 MMOL/L (135-148)
[2016-09-08 06:36] LABS: BUN (BLOOD UREA NITROGEN) 47 MG/DL (6-23); GLUCOSE, SERUM 176 MG/DL (60-99)
[2016-09-09 14:39] LABS: ALBUMIN 1.9 G/DL (3.5-5.0); BUN (BLOOD UREA NITROGEN) 55 MG/DL (6-23); CALCIUM, SERUM 8.1 MG/DL (8.5-10.4); CHLORIDE, SERUM 93 MMOL/L (96-112); CO2 (CARBON DIOXIDE) 38 MMOL/L (24-34); CREATININE 2.73 MG/DL (0.70-1.30); GFR AFRICAN AMERICAN 25 ML/MIN (>=60); GFR NON AFRICAN AMERICAN 21 ML/MIN (>=60); GLUCOSE, SERUM 201 MG/DL (60-99); PHOSPHORUS, SERUM 2.6 MG/DL (2.5-4.5); SODIUM, SERUM 139 MMOL/L (135-148)
[2016-09-10 05:31] LABS: BASOPHILS 0.1 %; BASOPHILS ABSOLUTE 0.01 10/3/uL (0.0-0.16); EOSINOPHILS 0.6 %; EOSINOPHILS ABSOLUTE 0.06 10/3/uL (0.0-0.53); HEMATOCRIT 30.9 % (40.0-51.0); HEMOGLOBIN 9.6 g/dL (13.6-17.8); IMMATURE GRANULOCYTES 0.5 %; IMMATURE GRANULOCYTES ABSOLUTE 0.05 10/3/uL (0.0-0.11); LYMPHOCYTES 21.2 %; LYMPHOCYTES ABSOLUTE 2.12 10/3/uL (0.67-4.30); MEAN CORPUS HGB CONC 31.1 g/dL (32.0-36.0); MEAN CORPUSCULAR HEMOGLOB 30.2 pg (26.0-34.0); MEAN CORPUSCULAR VOLUME 97.2 fL (80-100); MEAN PLATELET VOLUME 8.9 fL (9.2-13.0); MONOCYTES 7.9 %; MONOCYTES ABSOLUTE 0.79 10/3/uL (0.21-1.20); NEUTROPHILS 69.7 %; NEUTROPHILS ABSOLUTE 6.99 10/3/uL (2.02-8.40); PLATELET COUNT 146 10/3/uL (150-400); RBC DISTRIBUTION WIDTH 17.5 % (12.0-16.0); RED CELL COUNT 3.18 10/6/uL (4.7-6.1)
[2016-09-10 05:34] LABS: MANUAL DIFF NO %
[2016-09-10 05:46] LABS: BUN (BLOOD UREA NITROGEN) 52 MG/DL (6-23); CALCIUM, SERUM 8.5 MG/DL (8.5-10.4); CHLORIDE, SERUM 91 MMOL/L (96-112); CO2 (CARBON DIOXIDE) 39 MMOL/L (24-34); CREATININE 2.45 MG/DL (0.70-1.30); GFR AFRICAN AMERICAN 28 ML/MIN (>=60); GFR NON AFRICAN AMERICAN 24 ML/MIN (>=60); GLUCOSE, SERUM 92 MG/DL (60-99); POTASSIUM, SERUM 3.2 MMOL/L (3.5-5.3); SODIUM, SERUM 141 MMOL/L (135-148)
[2016-09-11 12:05] LABS: BASOPHILS 0.1 %; BASOPHILS ABSOLUTE 0.01 10/3/uL (0.0-0.16); EOSINOPHILS 0.8 %; EOSINOPHILS ABSOLUTE 0.06 10/3/uL (0.0-0.53); HEMATOCRIT 32.5 % (40.0-51.0); HEMOGLOBIN 10.3 g/dL (13.6-17.8); IMMATURE GRANULOCYTES 0.8 %; IMMATURE GRANULOCYTES ABSOLUTE 0.06 10/3/uL (0.0-0.11); LYMPHOCYTES 18.5 %; LYMPHOCYTES ABSOLUTE 1.45 10/3/uL (0.67-4.30); MEAN CORPUS HGB CONC 31.7 g/dL (32.0-36.0); MEAN CORPUSCULAR HEMOGLOB 31.1 pg (26.0-34.0); MEAN CORPUSCULAR VOLUME 98.2 fL (80-100); MONOCYTES 10.2 %; NEUTROPHILS 69.6 %; NEUTROPHILS ABSOLUTE 5.47 10/3/uL (2.02-8.40); PLATELET COUNT 150 10/3/uL (150-400); RBC DISTRIBUTION WIDTH 17.2 % (12.0-16.0); RED CELL COUNT 3.31 10/6/uL (4.7-6.1); WHITE BLOOD CELLS 7.9 10/3/uL (4.5-10.5)
[2016-09-11 12:06] LABS: MANUAL DIFF NO %
[2016-09-11 12:20] LABS: BUN (BLOOD UREA NITROGEN) 50 MG/DL (6-23); CALCIUM, SERUM 8.4 MG/DL (8.5-10.4); CHLORIDE, SERUM 85 MMOL/L (96-112); CREATININE 2.32 MG/DL (0.70-1.30); GFR AFRICAN AMERICAN 30 ML/MIN (>=60); GFR NON AFRICAN AMERICAN 26 ML/MIN (>=60); SODIUM, SERUM 140 MMOL/L (135-148)
[2016-09-11 12:21] LABS: CO2 (CARBON DIOXIDE) 42 MMOL/L (24-34); GLUCOSE, SERUM 196 MG/DL (60-99); POTASSIUM, SERUM 2.6 MMOL/L (3.5-5.3)
[2016-09-12 06:00] LABS: BASOPHILS 0.1 %; BASOPHILS ABSOLUTE 0.01 10/3/uL (0.0-0.16); EOSINOPHILS 0.9 %; EOSINOPHILS ABSOLUTE 0.08 10/3/uL (0.0-0.53); HEMATOCRIT 33.3 % (40.0-51.0); HEMOGLOBIN 10.5 g/dL (13.6-17.8); IMMATURE GRANULOCYTES 0.5 %; IMMATURE GRANULOCYTES ABSOLUTE 0.04 10/3/uL (0.0-0.11); LYMPHOCYTES 23.4 %; MEAN CORPUS HGB CONC 31.5 g/dL (32.0-36.0); MEAN CORPUSCULAR HEMOGLOB 30.6 pg (26.0-34.0); MEAN CORPUSCULAR VOLUME 97.1 fL (80-100); MEAN PLATELET VOLUME 8.8 fL (9.2-13.0); MONOCYTES 8.5 %; MONOCYTES ABSOLUTE 0.73 10/3/uL (0.21-1.20); NEUTROPHILS 66.6 %; NEUTROPHILS ABSOLUTE 5.68 10/3/uL (2.02-8.40); PLATELET COUNT 144 10/3/uL (150-400); RED CELL COUNT 3.43 10/6/uL (4.7-6.1); WHITE BLOOD CELLS 8.5 10/3/uL (4.5-10.5)
[2016-09-12 06:01] LABS: MANUAL DIFF NO %
[2016-09-12 06:25] LABS: BUN (BLOOD UREA NITROGEN) 47 MG/DL (6-23); CALCIUM, SERUM 8.5 MG/DL (8.5-10.4); CHLORIDE, SERUM 81 MMOL/L (96-112); CO2 (CARBON DIOXIDE) 40 MMOL/L (24-34); CREATININE 2.17 MG/DL (0.70-1.30); GFR AFRICAN AMERICAN 32 ML/MIN (>=60); GFR NON AFRICAN AMERICAN 28 ML/MIN (>=60); SODIUM, SERUM 136 MMOL/L (135-148)
[2016-09-12 06:28] LABS: GLUCOSE, SERUM 130 MG/DL (60-99); POTASSIUM, SERUM 2.7 MMOL/L (3.5-5.3)
[2016-09-13 07:23] LABS: ALBUMIN 1.9 G/DL (3.5-5.0); BUN (BLOOD UREA NITROGEN) 47 MG/DL (6-23); CALCIUM, SERUM 8.7 MG/DL (8.5-10.4); CHLORIDE, SERUM 87 MMOL/L (96-112); CO2 (CARBON DIOXIDE) 39 MMOL/L (24-34); CREATININE 2.17 MG/DL (0.70-1.30); GFR AFRICAN AMERICAN 32 ML/MIN (>=60); GFR NON AFRICAN AMERICAN 28 ML/MIN (>=60); GLUCOSE, SERUM 143 MG/DL (60-99); PHOSPHORUS, SERUM 2.4 MG/DL (2.5-4.5); SODIUM, SERUM 136 MMOL/L (135-148)
[2016-09-13 07:24] LABS: POTASSIUM, SERUM 3.4 MMOL/L (3.5-5.3)
[2016-09-14 07:06] LABS: BASOPHILS 0.3 %; BASOPHILS ABSOLUTE 0.02 10/3/uL (0.0-0.16); EOSINOPHILS 0.7 %; EOSINOPHILS ABSOLUTE 0.05 10/3/uL (0.0-0.53); HEMATOCRIT 33.9 % (40.0-51.0); HEMOGLOBIN 10.6 g/dL (13.6-17.8); IMMATURE GRANULOCYTES 0.3 %; IMMATURE GRANULOCYTES ABSOLUTE 0.02 10/3/uL (0.0-0.11); LYMPHOCYTES 25.9 %; LYMPHOCYTES ABSOLUTE 1.85 10/3/uL (0.67-4.30); MEAN CORPUS HGB CONC 31.3 g/dL (32.0-36.0); MEAN CORPUSCULAR HEMOGLOB 30.6 pg (26.0-34.0); MONOCYTES 9.3 %; MONOCYTES ABSOLUTE 0.66 10/3/uL (0.21-1.20); NEUTROPHILS 63.5 %; NEUTROPHILS ABSOLUTE 4.53 10/3/uL (2.02-8.40); PLATELET COUNT 163 10/3/uL (150-400); RBC DISTRIBUTION WIDTH 17.4 % (12.0-16.0); RED CELL COUNT 3.46 10/6/uL (4.7-6.1); WHITE BLOOD CELLS 7.1 10/3/uL (4.5-10.5)
[2016-09-14 07:09] LABS: MANUAL DIFF NO %
[2016-09-14 07:19] LABS: ALBUMIN 2.1 G/DL (3.5-5.0); CALCIUM, SERUM 8.4 MG/DL (8.5-10.4); CHLORIDE, SERUM 89 MMOL/L (96-112); CO2 (CARBON DIOXIDE) 38 MMOL/L (24-34); CREATININE 2.07 MG/DL (0.70-1.30); GFR AFRICAN AMERICAN 34 ML/MIN (>=60); GFR NON AFRICAN AMERICAN 30 ML/MIN (>=60); GLUCOSE, SERUM 150 MG/DL (60-99); PHOSPHORUS, SERUM 2.9 MG/DL (2.5-4.5); POTASSIUM, SERUM 3.4 MMOL/L (3.5-5.3); SODIUM, SERUM 139 MMOL/L (135-148)
[2016-09-14 07:20] LABS: BUN (BLOOD UREA NITROGEN) 43 MG/DL (6-23)
[2016-09-14 12:09] LABS: ASCORBIC ACID (UR NOT ORDER) NEG (NEG); BILIRUBIN, URINE NEGATIVE (NEG); KETONE, URINE NEGATIVE (NEG); LEUKOCYTE ESTERASE(NOT OR MOD (NEG); WBC (NOT ORDERED) (RFLEX) 16 (0-5)
[2016-09-14 12:11] LABS: pH 7.56 (7.37-7.43)
[2016-09-14 12:12] LABS: BE (BASE EXCESS) 33.2 MEQ/L (0 +/- 2.5); CARBOXYHEMOGLOBIN 0.6 % (0-3); HCO3 (ACTUAL BICARBONATE) 60.2 MEQ/L (23-27); METHEMOGLOBIN 0.3 % (0-3); PCO2 (CO2 TENSION) 69 MMHG (35-45); PO2 (O2 TENSION) 99 MMHG (79-93)
[2016-09-14 12:13] LABS: HEMOBLOGIN CONTENT 10.7 G/DL (14-18); INSPIRED O2 28 %; SAMPLE ARTERIAL
[2016-09-15 07:41] LABS: BASOPHILS 0.1 %; BASOPHILS ABSOLUTE 0.01 10/3/uL (0.0-0.16); EOSINOPHILS 0.6 %; EOSINOPHILS ABSOLUTE 0.04 10/3/uL (0.0-0.53); HEMATOCRIT 33.3 % (40.0-51.0); HEMOGLOBIN 10.7 g/dL (13.6-17.8); IMMATURE GRANULOCYTES 0.3 %; IMMATURE GRANULOCYTES ABSOLUTE 0.02 10/3/uL (0.0-0.11); LYMPHOCYTES 24.7 %; MEAN CORPUS HGB CONC 32.1 g/dL (32.0-36.0); MEAN CORPUSCULAR HEMOGLOB 30.6 pg (26.0-34.0); MEAN CORPUSCULAR VOLUME 95.1 fL (80-100); MEAN PLATELET VOLUME 8.7 fL (9.2-13.0); MONOCYTES 6.7 %; MONOCYTES ABSOLUTE 0.46 10/3/uL (0.21-1.20); NEUTROPHILS 67.6 %; NEUTROPHILS ABSOLUTE 4.65 10/3/uL (2.02-8.40); PLATELET COUNT 169 10/3/uL (150-400); RBC DISTRIBUTION WIDTH 17.5 % (12.0-16.0); WHITE BLOOD CELLS 6.9 10/3/uL (4.5-10.5)
[2016-09-15 07:44] LABS: MANUAL DIFF NO %
[2016-09-15 07:59] LABS: ALBUMIN 2.1 G/DL (3.5-5.0); ALKALINE PHOSPHATASE 98 U/L (45-117); BUN (BLOOD UREA NITROGEN) 42 MG/DL (6-23); CALCIUM, SERUM 8.6 MG/DL (8.5-10.4); CREATININE 2.07 MG/DL (0.70-1.30); DIRECT BILIRUBIN 0.3 MG/DL (0.0-0.4); GFR AFRICAN AMERICAN 34 ML/MIN (>=60); GFR NON AFRICAN AMERICAN 30 ML/MIN (>=60); GLUCOSE, SERUM 164 MG/DL (60-99); INDIRECT BILIRUBIN(NOT ORDER) 0.3 MG/DL (0.1-0.9); PHOSPHORUS, SERUM 2.8 MG/DL (2.5-4.5); SGOT(AST) 14 U/L (5-40); SGPT(ALT) 14 U/L (5-65); TOTAL BILIRUBIN 0.6 MG/DL (0-1.2); TOTAL PROTEIN 6.5 G/DL (6.0-8.5)
[2016-09-15 08:01] LABS: CO2 (CARBON DIOXIDE) 40 MMOL/L (24-34)
[2016-09-15 08:02] LABS: CHLORIDE, SERUM 91 MMOL/L (96-112); SODIUM, SERUM 140 MMOL/L (135-148)
[2016-09-16 06:56] LABS: BASOPHILS 0.1 %; BASOPHILS ABSOLUTE 0.01 10/3/uL (0.0-0.16); EOSINOPHILS 0.7 %; EOSINOPHILS ABSOLUTE 0.06 10/3/uL (0.0-0.53); HEMATOCRIT 32.1 % (40.0-51.0); HEMOGLOBIN 10.2 g/dL (13.6-17.8); IMMATURE GRANULOCYTES 0.2 %; IMMATURE GRANULOCYTES ABSOLUTE 0.02 10/3/uL (0.0-0.11); LYMPHOCYTES 33.9 %; LYMPHOCYTES ABSOLUTE 2.74 10/3/uL (0.67-4.30); MANUAL DIFF NO %; MEAN CORPUS HGB CONC 31.8 g/dL (32.0-36.0); MEAN CORPUSCULAR HEMOGLOB 30.4 pg (26.0-34.0); MEAN CORPUSCULAR VOLUME 95.5 fL (80-100); MONOCYTES 6.6 %; MONOCYTES ABSOLUTE 0.53 10/3/uL (0.21-1.20); NEUTROPHILS 58.5 %; NEUTROPHILS ABSOLUTE 4.73 10/3/uL (2.02-8.40); PLATELET COUNT 175 10/3/uL (150-400); RBC DISTRIBUTION WIDTH 17.6 % (12.0-16.0); RED CELL COUNT 3.36 10/6/uL (4.7-6.1); WHITE BLOOD CELLS 8.1 10/3/uL (4.5-10.5)
[2016-09-16 07:08] LABS: ALBUMIN 2.1 G/DL (3.5-5.0); BUN (BLOOD UREA NITROGEN) 39 MG/DL (6-23); CALCIUM, SERUM 8.4 MG/DL (8.5-10.4); CHLORIDE, SERUM 90 MMOL/L (96-112); CO2 (CARBON DIOXIDE) 37 MMOL/L (24-34); GFR AFRICAN AMERICAN 32 ML/MIN (>=60); GFR NON AFRICAN AMERICAN 27 ML/MIN (>=60); GLUCOSE, SERUM 153 MG/DL (60-99); PHOSPHORUS, SERUM 3.1 MG/DL (2.5-4.5); POTASSIUM, SERUM 3.3 MMOL/L (3.5-5.3); SODIUM, SERUM 139 MMOL/L (135-148)
[2016-09-17 07:44] LABS: ALBUMIN 2.1 G/DL (3.5-5.0); BUN (BLOOD UREA NITROGEN) 42 MG/DL (6-23); CALCIUM, SERUM 8.5 MG/DL (8.5-10.4); CHLORIDE, SERUM 92 MMOL/L (96-112); CREATININE 2.27 MG/DL (0.70-1.30); GFR AFRICAN AMERICAN 31 ML/MIN (>=60); GFR NON AFRICAN AMERICAN 26 ML/MIN (>=60); PHOSPHORUS, SERUM 3.3 MG/DL (2.5-4.5); POTASSIUM, SERUM 3.7 MMOL/L (3.5-5.3); SODIUM, SERUM 136 MMOL/L (135-148)
[2016-09-17 07:45] LABS: CO2 (CARBON DIOXIDE) 32 MMOL/L (24-34); GLUCOSE, SERUM 187 MG/DL (60-99)
[2016-09-18 06:42] LABS: BASOPHILS 0.4 %; BASOPHILS ABSOLUTE 0.03 10/3/uL (0.0-0.16); EOSINOPHILS ABSOLUTE 0.07 10/3/uL (0.0-0.53); HEMATOCRIT 33.6 % (40.0-51.0); HEMOGLOBIN 10.8 g/dL (13.6-17.8); IMMATURE GRANULOCYTES 0.1 %; IMMATURE GRANULOCYTES ABSOLUTE 0.01 10/3/uL (0.0-0.11); LYMPHOCYTES 33.1 %; LYMPHOCYTES ABSOLUTE 2.33 10/3/uL (0.67-4.30); MEAN CORPUS HGB CONC 32.1 g/dL (32.0-36.0); MEAN CORPUSCULAR HEMOGLOB 30.9 pg (26.0-34.0); MEAN PLATELET VOLUME 9.2 fL (9.2-13.0); MONOCYTES 9.2 %; MONOCYTES ABSOLUTE 0.65 10/3/uL (0.21-1.20); NEUTROPHILS 56.2 %; NEUTROPHILS ABSOLUTE 3.95 10/3/uL (2.02-8.40); PLATELET COUNT 198 10/3/uL (150-400); RBC DISTRIBUTION WIDTH 17.5 % (12.0-16.0)
[2016-09-18 06:43] LABS: MANUAL DIFF NO %
[2016-09-18 06:59] LABS: ALBUMIN 2.1 G/DL (3.5-5.0); BUN (BLOOD UREA NITROGEN) 41 MG/DL (6-23); CALCIUM, SERUM 8.4 MG/DL (8.5-10.4); CHLORIDE, SERUM 91 MMOL/L (96-112); CO2 (CARBON DIOXIDE) 35 MMOL/L (24-34); CREATININE 2.49 MG/DL (0.70-1.30); GFR AFRICAN AMERICAN 27 ML/MIN (>=60); GFR NON AFRICAN AMERICAN 24 ML/MIN (>=60); GLUCOSE, SERUM 166 MG/DL (60-99); PHOSPHORUS, SERUM 3.5 MG/DL (2.5-4.5); POTASSIUM, SERUM 3.1 MMOL/L (3.5-5.3); SODIUM, SERUM 135 MMOL/L (135-148)
[2016-09-19 13:27] LABS: BUN (BLOOD UREA NITROGEN) 47 MG/DL (6-23); CALCIUM, SERUM 8.1 MG/DL (8.5-10.4); CHLORIDE, SERUM 89 MMOL/L (96-112); CO2 (CARBON DIOXIDE) 34 MMOL/L (24-34); CREATININE 2.78 MG/DL (0.70-1.30); GFR AFRICAN AMERICAN 24 ML/MIN (>=60); GFR NON AFRICAN AMERICAN 21 ML/MIN (>=60); GLUCOSE, SERUM 199 MG/DL (60-99); PHOSPHORUS, SERUM 3.3 MG/DL (2.5-4.5); POTASSIUM, SERUM 3.6 MMOL/L (3.5-5.3); SODIUM, SERUM 135 MMOL/L (135-148)
[2016-09-19 19:15] LABS: INTERNATIONAL NORMAL RATI 1.1 UNITS (-); PROTIME (NOT ORD) 14.1 SEC (12.0-14.5)
[2016-09-20 06:52] LABS: BASOPHILS 0.2 %; BASOPHILS ABSOLUTE 0.01 10/3/uL (0.0-0.16); EOSINOPHILS 2.3 %; EOSINOPHILS ABSOLUTE 0.14 10/3/uL (0.0-0.53); LYMPHOCYTES 40.9 %; LYMPHOCYTES ABSOLUTE 2.51 10/3/uL (0.67-4.30); MANUAL DIFF NO %; MEAN CORPUS HGB CONC 32.4 g/dL (32.0-36.0); MEAN CORPUSCULAR VOLUME 95.8 fL (80-100); MEAN PLATELET VOLUME 9.1 fL (9.2-13.0); MONOCYTES 11.4 %; NEUTROPHILS 45.2 %; NEUTROPHILS ABSOLUTE 2.77 10/3/uL (2.02-8.40); PLATELET COUNT 172 10/3/uL (150-400); RBC DISTRIBUTION WIDTH 17.6 % (12.0-16.0); RED CELL COUNT 3.55 10/6/uL (4.7-6.1); WHITE BLOOD CELLS 6.1 10/3/uL (4.5-10.5)
[2016-09-20 07:04] LABS: CALCIUM, SERUM 7.9 MG/DL (8.5-10.4); CHLORIDE, SERUM 92 MMOL/L (96-112); CO2 (CARBON DIOXIDE) 34 MMOL/L (24-34); CREATININE 2.66 MG/DL (0.70-1.30); GFR AFRICAN AMERICAN 25 ML/MIN (>=60); GFR NON AFRICAN AMERICAN 22 ML/MIN (>=60); GLUCOSE, SERUM 162 MG/DL (60-99)
[2016-09-20 07:07] LABS: BUN (BLOOD UREA NITROGEN) 52 MG/DL (6-23); SODIUM, SERUM 136 MMOL/L (135-148)
[2016-09-21 06:53] LABS: BASOPHILS 0.2 %; BASOPHILS ABSOLUTE 0.01 10/3/uL (0.0-0.16); EOSINOPHILS 4.6 %; EOSINOPHILS ABSOLUTE 0.25 10/3/uL (0.0-0.53); HEMATOCRIT 34.3 % (40.0-51.0); HEMOGLOBIN 11.1 g/dL (13.6-17.8); IMMATURE GRANULOCYTES 0.2 %; IMMATURE GRANULOCYTES ABSOLUTE 0.01 10/3/uL (0.0-0.11); LYMPHOCYTES 42.6 %; LYMPHOCYTES ABSOLUTE 2.32 10/3/uL (0.67-4.30); MEAN CORPUS HGB CONC 32.4 g/dL (32.0-36.0); MEAN CORPUSCULAR HEMOGLOB 30.2 pg (26.0-34.0); MEAN CORPUSCULAR VOLUME 93.2 fL (80-100); MEAN PLATELET VOLUME 9.1 fL (9.2-13.0); MONOCYTES 12.5 %; MONOCYTES ABSOLUTE 0.68 10/3/uL (0.21-1.20); NEUTROPHILS 39.9 %; NEUTROPHILS ABSOLUTE 2.17 10/3/uL (2.02-8.40); PLATELET COUNT 182 10/3/uL (150-400); RBC DISTRIBUTION WIDTH 17.7 % (12.0-16.0); RED CELL COUNT 3.68 10/6/uL (4.7-6.1); WHITE BLOOD CELLS 5.4 10/3/uL (4.5-10.5)
[2016-09-21 06:55] LABS: MANUAL DIFF NO %
[2016-09-21 07:02] LABS: ALBUMIN 2.1 G/DL (3.5-5.0); BUN (BLOOD UREA NITROGEN) 55 MG/DL (6-23); CALCIUM, SERUM 8.2 MG/DL (8.5-10.4); CHLORIDE, SERUM 93 MMOL/L (96-112); CO2 (CARBON DIOXIDE) 33 MMOL/L (24-34); CREATININE 2.74 MG/DL (0.70-1.30); GFR AFRICAN AMERICAN 24 ML/MIN (>=60); GFR NON AFRICAN AMERICAN 21 ML/MIN (>=60); GLUCOSE, SERUM 136 MG/DL (60-99); PHOSPHORUS, SERUM 4.2 MG/DL (2.5-4.5); POTASSIUM, SERUM 3.3 MMOL/L (3.5-5.3); SODIUM, SERUM 136 MMOL/L (135-148)
[2016-09-22 06:45] LABS: BASOPHILS 0.2 %; BASOPHILS ABSOLUTE 0.01 10/3/uL (0.0-0.16); EOSINOPHILS 3.4 %; EOSINOPHILS ABSOLUTE 0.18 10/3/uL (0.0-0.53); HEMATOCRIT 34.1 % (40.0-51.0); HEMOGLOBIN 11.1 g/dL (13.6-17.8); IMMATURE GRANULOCYTES 0.2 %; IMMATURE GRANULOCYTES ABSOLUTE 0.01 10/3/uL (0.0-0.11); LYMPHOCYTES 49.2 %; LYMPHOCYTES ABSOLUTE 2.64 10/3/uL (0.67-4.30); MEAN CORPUS HGB CONC 32.6 g/dL (32.0-36.0); MEAN CORPUSCULAR HEMOGLOB 31.3 pg (26.0-34.0); MEAN PLATELET VOLUME 8.9 fL (9.2-13.0); MONOCYTES ABSOLUTE 0.59 10/3/uL (0.21-1.20); NEUTROPHILS ABSOLUTE 1.94 10/3/uL (2.02-8.40); PLATELET COUNT 198 10/3/uL (150-400); RBC DISTRIBUTION WIDTH 17.3 % (12.0-16.0); RED CELL COUNT 3.55 10/6/uL (4.7-6.1); WHITE BLOOD CELLS 5.4 10/3/uL (4.5-10.5)
[2016-09-22 06:47] LABS: MANUAL DIFF NO %; MEAN CORPUSCULAR VOLUME 96.1 fL (80-100)
[2016-09-22 06:57] LABS: BUN (BLOOD UREA NITROGEN) 55 MG/DL (6-23); CALCIUM, SERUM 8.2 MG/DL (8.5-10.4); CHLORIDE, SERUM 89 MMOL/L (96-112); CO2 (CARBON DIOXIDE) 33 MMOL/L (24-34); CREATININE 2.56 MG/DL (0.70-1.30); GFR AFRICAN AMERICAN 27 ML/MIN (>=60); GFR NON AFRICAN AMERICAN 23 ML/MIN (>=60); GLUCOSE, SERUM 195 MG/DL (60-99); PHOSPHORUS, SERUM 3.1 MG/DL (2.5-4.5); POTASSIUM, SERUM 3.2 MMOL/L (3.5-5.3); SODIUM, SERUM 134 MMOL/L (135-148)
== END 2016-09-22 16:50 | DRG 291 ==
LOC: ER 11:04 → CDU1 13:34 → CDU2 15:44 → 7NO 23:26
PROVIDERS: Hospitalist; Internal Medicine; Internal Medicine Gastroenterology; Internal Medicine Nephrology; Nurse Practitioner; Nurse Practitioner Family
PROC: 0DH63UZ Insertion of Feeding Device into Stomach, Percutaneous Approach (ICD-10-PCS; principal; 2016-09-20 13:19)
DX: I13.0 Hypertensive heart and chronic kidney disease with heart failure and stage 1 through stage 4 chronic kidney disease, or unspecified chronic kidney disease (principal); J18.9 Pneumonia, unspecified organism; J96.21 Acute and chronic respiratory failure with hypoxia; G93.41 Metabolic encephalopathy; E44.0 Moderate protein-calorie malnutrition; N18.4 Chronic kidney disease, stage 4 (severe); N17.9 Acute kidney failure, unspecified; Z99.81 Dependence on supplemental oxygen; E11.22 Type 2 diabetes mellitus with diabetic chronic kidney disease; I48.2 Chronic atrial fibrillation; I50.23 Acute on chronic systolic (congestive) heart failure; G47.33 Obstructive sleep apnea (adult) (pediatric); Z79.4 Long term (current) use of insulin; N40.0 Benign prostatic hyperplasia without lower urinary tract symptoms; E03.9 Hypothyroidism, unspecified; Z66 Do not resuscitate; Z68.28 Body mass index [BMI] 28.0-28.9, adult
CPT/HCPCS: 36600; 70450; 71010; 80048; 80053; 80069; 80076; 80162; 81001; 82140; 82570; 82805; 82947; 82962; 83605; 83735; 83880; 84132; 84145; 84300; 84443; 84484; 84540; 85025; 85610; 85730; 87040; 87086; 87804; 92610-GN; 93005; 94640; 96374; 97161-GP; 97530-GP; 99285; A9270-GY; C8929; C9113; G8978-CL-GP; G8979-CK-GP; G8996-CL-GN; G8996-CN-GN; G8997-CL-GN; G8997-CN-GN; G8998-CL-GN; G8998-CN-GN; J0456; J0610; J0690; J1205; J1610; J1956; J2370; J2405; J2930; J3480; Q9957

== ENCOUNTER 2016-11-08 04:33 | Emergency (ER) | payer MEDICARE, OTHER ==
[~2016-11-08 04:33] MED LIST changes: +BACDS PO; +CARD90 PO; +DUONEB INH; +ENULOSE PO; +KLOR-CON M2020 MEQ PO; +L40 PO; +LAN125 PO; +LANTUS PO; +PRILOSEC40 MG PO; +STERAP512
[2016-11-08 05:10] LABS: BASOPHILS 0.2 %; BASOPHILS ABSOLUTE 0.02 10/3/uL (0.0-0.16); EOSINOPHILS 1.5 %; EOSINOPHILS ABSOLUTE 0.15 10/3/uL (0.0-0.53); IMMATURE GRANULOCYTES 0.3 %; IMMATURE GRANULOCYTES ABSOLUTE 0.03 10/3/uL (0.0-0.11); LYMPHOCYTES 28.9 %; LYMPHOCYTES ABSOLUTE 2.81 10/3/uL (0.67-4.30); MEAN CORPUS HGB CONC 33.3 g/dL (32.0-36.0); MEAN CORPUSCULAR HEMOGLOB 32.3 pg (26.0-34.0); MEAN CORPUSCULAR VOLUME 96.8 fL (80-100); MEAN PLATELET VOLUME 8.2 fL (9.2-13.0); MONOCYTES 7.9 %; MONOCYTES ABSOLUTE 0.77 10/3/uL (0.21-1.20); NEUTROPHILS 61.2 %; NEUTROPHILS ABSOLUTE 5.94 10/3/uL (2.02-8.40); RBC DISTRIBUTION WIDTH 15.9 % (12.0-16.0)
[2016-11-08 05:11] LABS: ER CBC TAT 0 Hrs 06 MinsNP; MANUAL DIFF NO %; PLATELET COUNT 277 10/3/uL (150-400); WHITE BLOOD CELLS 9.7 10/3/uL (4.5-10.5)
[2016-11-08 05:16] LABS: INTERNATIONAL NORMAL RATI 1.1 UNITS (-); PROTIME (NOT ORD) 13.7 SEC (12.0-14.5)
[2016-11-08 05:17] LABS: PARTIAL THROMBO TIME 29.2 SEC (22.5-37.2)
[2016-11-08 05:26] LABS: CALCIUM, SERUM 8.1 MG/DL (8.5-10.4); CHLORIDE, SERUM 97 MMOL/L (96-112); CO2 (CARBON DIOXIDE) 32 MMOL/L (24-34); POTASSIUM, SERUM 3.5 MMOL/L (3.5-5.3)
[2016-11-08 05:30] LABS: BUN (BLOOD UREA NITROGEN) 23 MG/DL (6-23); CREATININE 1.22 MG/DL (0.70-1.30); GFR AFRICAN AMERICAN 64 ML/MIN (>=60); GFR NON AFRICAN AMERICAN 56 ML/MIN (>=60); GLUCOSE, SERUM 147 MG/DL (60-99); SODIUM, SERUM 141 MMOL/L (135-148)
[2016-11-08 05:31] LABS: CHEST PAIN PROFILE TAT 0 Hrs 26 Mins; TROPONIN I 0.07 NG/ML (<0.05)
== END 2016-11-08 08:00 | disposition home or self-care (01) ==
LOC: ER 04:33
PROVIDERS: Specialist
DX: I13.0 Hypertensive heart and chronic kidney disease with heart failure and stage 1 through stage 4 chronic kidney disease, or unspecified chronic kidney disease (principal); I50.9 Heart failure, unspecified; N18.9 Chronic kidney disease, unspecified; E11.22 Type 2 diabetes mellitus with diabetic chronic kidney disease; I48.91 Unspecified atrial fibrillation; Z85.820 Personal history of malignant melanoma of skin; Z79.899 Other long term (current) drug therapy; Z79.4 Long term (current) use of insulin; Z79.52 Long term (current) use of systemic steroids
CPT/HCPCS: 71010; 80048; 83735; 83880; 84484; 85025; 85610; 85730; 93005; 99285

== ENCOUNTER 2016-11-17 09:09 | Inpatient (IN) | payer MEDICARE, OTHER ==
--- NOTE | ~2016-11-17 | DS ---
Discharge Summary [place] [address] [place]. [address] NAME: DOC GREENBERG : 37 STATUS : DIS IN PAT#: [id number] AGE: 81 ADM/REG DATE : 11/17/16 MR#: [id number] REPORT SERV DATE: 11/21/16 DICTATED BY: CHARLY LOREDO DATE: 11/20/16 REPORT STATUS : Draft TRANSCRIBED BY: CRYSTAL DATE: 11/20/16 ADMISSION DATE: 11/17/2016 DISCHARGE DATE: 11/20/2016 DISCHARGE DIAGNOSES: 1. Acute on chronic systolic congestive heart failure exacerbation with baseline ejection fraction of 25%, the patient failed to respond to medical therapy. 2. Acute hypoxic respiratory failure secondary to Acute on chronic systolic congestive heart failure exacerbation. 3. Elevated troponin level of 4.53 likely due to a type 2 non-ST elevation myocardial infarction. 4. Chronic kidney disease with baseline creatinine of 2 to 2.5 at baseline. The patient has had poor urine output despite high dose of IV Lasix as well as Bumex. 5. Chronic atrial fibrillation for which the patient is not being anticoagulated. 6. Diabetes, type 2. 7. Hypertension. 8. Peptic ulcer disease. 9. Protein caloric malnutrition and the patient is dependent on PEG for feeding. CONSULTANTS: Cardiology. PROCEDURES: None. HOSPITAL COURSE: This is an 81-year-old gentleman who was admitted to the hospital with acute on chronic systolic congestive heart failure exacerbation. For details, please refer to my own H and P. In summary, the patient was admitted and was given aggressive IV Lasix diuresis. The patient was also seen by Cardiology. Unfortunately, with the patient's chronic kidney disease, he really failed to respond to IV diuretics. The patient's urine output was inadequate and the patient's renal function only worsened with the IV Lasix diuresis therapy. After a few days of maximal medical therapy without any improvement, a lengthy discussion was made with the family who agreed that the patient will probably benefit the most from hospice care. The patient is now being discharged home under [facility]. The patient will be discharged their facility before returning home. DISPOSITION: [facility]. A total of 35 minutes spent in coordinating this patient's discharge today. LOWELL/CRYSTAL Charly Loredo MD / [id number] Discharge Summary [place] [address] [facility]. [address] NAME: DOC GREENBERG : 36 STATUS : DIS IN PAT#: [id number] AGE: 81 ADM/REG DATE : 11/17/16 MR#: [id number] REPORT SERV DATE: 11/21/16 DICTATED BY: CHARLY LOREDO DATE: 11/20/16 REPORT STATUS : Draft TRANSCRIBED BY: CRYSTAL DATE: 11/20/16 CC: Charly Loredo MD
--- NOTE | ~2016-11-17 | CN ---
Consultation Report [facility] [address] [place]. [address] NAME: JAMES LEACH : 37 STATUS : ADM IN [facility]#: [id number] AGE: 81 ADM/REG DATE : 11/17/16 MR#: [id number] REPORT SERV DATE: 11/17/16 DICTATED BY: VINICIUS ACOSTA DATE: 11/17/16 REPORT STATUS : Draft TRANSCRIBED BY: MODArnold DATE: 11/17/16 DATE OF CONSULTATION: Mr. James Leach is an 81-year-old male, who is referred for abnormal troponin and left ventricular dysfunction. CVD: Previously seen by Dr. Fox. HISTORY OF PRESENT ILLNESS: Mr. Leach was discharged from the hospital on 09/22/2016 with systolic congestive heart failure, known chronic kidney disease, and chronic atrial fibrillation. His echocardiogram on previous admission decreased from 40% on 05/07/2017 to 25% at that time. He was sent to [facility] and then discharge home yesterday, came back to the emergency room almost immediately with shortness of breath and edema. REVIEW OF SYSTEMS: Unable to be obtained due to disorientation. PAST MEDICAL HISTORY: 1. Systolic congestive heart failure with EF in the mid 20s. 2. [id number] elevation [place] with history of positive troponin. After discussing with hospitalist and granddaughter, they preferred conservative management which I agree with. 3. Chronic atrial fibrillation, rate controlled. Not on anticoagulation secondary to GI bleed. 4. Chronic kidney disease. 5. Type 2 diabetes. 6. DNR status. SOCIAL HISTORY: His granddaughter is his guardian. He was just discharged from [facility] yesterday. FAMILY HISTORY: Noncontributory. PHYSICAL EXAMINATION: VITAL SIGNS: Blood pressure is 125/65, pulse is in the 90s. He is afebrile. HEENT: He is hard of hearing and disoriented to time and day, but cooperative. HEART/LUNGS: He is tachypneic with crackles in both bases. Breathing is labored with prolonged expiratory phase. He has no murmur, rubs, or gallops. ABDOMEN: He has active bowel sounds with PEG tube in place. EXTREMITIES: 1+ bilateral lower extremity edema is noted. LABORATORY EVALUATION: Creatinine 2.5, now 1.8. White count is elevated at 14. Troponin is positive at 4.5. EKG shows atrial fibrillation with previous anteroseptal infarct. ASSESSMENT: At this time, conservative management is most appropriate. We will diurese with Consultation Report [place] [address] [place]. [address] NAME: JAMES LEACH : 36 STATUS : ADM IN PAT#: [id number] AGE: 81 ADM/REG DATE : 11/17/16 MR#: [id number] REPORT SERV DATE: 11/17/16 DICTATED BY: VINICIUS ACOSTA DATE: 11/17/16 REPORT STATUS : Draft TRANSCRIBED BY: MODL DATE: 11/17/16 Demadex and add aspirin today. GG/CRYSTAL Vinicius Acosta M.D. / [id number] CC: Charly Reese MD
--- NOTE | ~2016-11-17 | HP ---
History And Physical [address] [address] NAME: DOC GREENBERG : 36 STATUS : ADM IN PAT#: [id number] AGE: 81 ADM/REG DATE : 11/17/16 MR#: [id number] REPORT SERV DATE: 11/17/16 DICTATED BY: CHARLY LOREDO DATE: 11/17/16 REPORT STATUS : Draft TRANSCRIBED BY: MODArnold DATE: 11/17/16 DATE OF ADMISSION: 11/17/2016 PRIMARY CARE PHYSICIAN: NICO Garza. CHIEF COMPLAINT: Shortness of breath. HISTORY OF PRESENT ILLNESS: This is an 81-year-old gentleman with history of congestive heart failure, chronic kidney disease, hypertension, diabetes amongst many other medical conditions, presenting with a shortness of breath. The patient was actually here in the hospital last month for an acute on chronic congestive heart failure. The patient had a fairly prolonged hospital stay before he was discharged to [facility]. The patient has completed his therapy at [facility] and he was actually discharged home just yesterday. The patient apparently has been developing bilateral lower extremity swelling and he was evaluated here in the ER about a week ago, and at that time, the patient was actually discharged back to [facility] because he appeared to be stable. The patient's granddaughter, who is the patient's main caregiver and who lives with the patient, does not feel that the patient was getting adequate care at [facility] and she feels that the patient was released home prematurely despite worsening bilateral lower extremity edema as well as shortness of breath. Also at [facility], the patient was receiving 2 L of oxygen per nasal cannula, but this was not continued when he was discharged home. It appears that the patient was indeed evaluated for home O2 needs and he did not qualify. In any case, the patient got home and he continued to have worsening shortness of breath and thus granddaughter decided to bring him to the ER for further evaluation and care. In the ER, the patient was found to be afebrile and hemodynamically stable. The patient was requiring 2 L of oxygen per nasal cannula to maintain adequate oxygen saturations as his oxygen saturations on room air were in the high 80s. Initial lab evaluation in the ER was fairly benign. Chest x-ray showed severe congestive heart failure changes and the patient did have evidence of fluid overload on physical exam. The patient was then also found to have a troponin level of 4.53. The patient otherwise did not complain of any chest pain and he never complained of chest pain even at home. The patient's EKG was mostly benign with minimal and questionable ST depressions in the lateral leads. Internal Medicine consultation was requested for admission of the patient for further evaluation and care. REVIEW OF SYSTEMS: The patient denies any fevers or chills. Also, 14-point review of systems reviewed and negative other than mentioned above. MEDICATIONS: 1. Tylenol 650 mg p.o. q.4 hours p.r.n. 2. DuoNeb inhaled one nebulizer q.4 hours while awake. 3. Albuterol one nebulizer inhaled every two hours as needed. 4. Dulcolax 10 mg MD daily p.r.n. 5. Digoxin 0.125 mg p.o. daily. History And Physical [address] [address] NAME: DOC GREENBERG : 37 STATUS : ADM IN [facility]#: [id number] AGE: 81 ADM/REG DATE : 11/17/16 MR#: [id number] REPORT SERV DATE: 11/17/16 DICTATED BY: CHARLY LOREDO DATE: 11/17/16 REPORT STATUS : Draft TRANSCRIBED BY: CRYSTAL DATE: 11/17/16 6. Cardizem 90 mg p.o. q.6 hours. 7. NovoLog subcu before meals and at bedtime per sliding scale. 8. Lactulose 15 mL p.o. daily. 9. Synthroid 25 mcg p.o. before breakfast. 10.Ativan 0.5 mg p.o. twice daily p.r.n. 11.Toprol 25 mg p.o. daily. 12.Nitrostat 0.4 mg sublingually as needed. 13.Prilosec 40 mg p.o. b.i.d. 14.Zofran 4 mg p.o. q.4 hours p.r.n. 15.MiraLAX one packet p.o. daily. 16.Klor-Con 40 mEq p.o. daily. 17.Zocor 40 mg p.o. at bedtime. 18.Demadex 40 mg p.o. daily. ALLERGIES: NKDA. PAST MEDICAL HISTORY: 1. Systolic congestive heart failure with ejection fraction of 25%. The patient apparently does not follow with a vibrator operator. The patient does not have any cardiac device including pacemaker or defibrillator. 2. Chronic atrial fibrillation for which the patient is not being anticoagulated due to his history of PUD. 3. Chronic kidney disease with creatinine baseline of 2 to 2.5. 4. Protein-caloric malnutrition, the patient is currently on bolus feeding per PEG. 5. Hypertension. 6. Diabetes type 2. 7. Peptic ulcer disease. 8. Osteoarthritis. PAST SURGICAL HISTORY: 1. Carpal tunnel release. 2. TURP. 3. PEG tube placement. FAMILY HISTORY: 1. Hypertension. 2. Dementia. 3. Heart diseases. SOCIAL HISTORY: The patient does not smoke, drink alcohol, or use any illicit drugs. The patient lives at home with his granddaughter who is at bedside here in the ER. PHYSICAL EXAMINATION: VITAL SIGNS: Temperature 98.1, blood pressure 129/59, pulse 96, respiratory rate is 18, saturating 96% on 3 L of oxygen per nasal cannula. NEURO: The patient is alert and oriented x3 with no focal neurologic deficits. GENERAL: The patient is awake, does not appear to be in acute distress, and he is History And Physical [address] [address] NAME: DOC GREENBERG : 37 STATUS : ADM IN [facility]#: [id number] AGE: 81 ADM/REG DATE : 11/17/16 MR#: [id number] REPORT SERV DATE: 11/17/16 DICTATED BY: CHARLY LOREDO DATE: 11/17/16 REPORT STATUS : Draft TRANSCRIBED BY: CRYSTAL DATE: 11/17/16 cooperative. NECK: No JVD. No lymphadenopathy. Normal thyroid. CHEST: No midline sternotomy scar and no tenderness to palpation. LUNGS: Fairly clear to auscultation bilaterally with minimal crackles. The patient has normal respiratory effort on 3 L of oxygen per nasal cannula. CARDIOVASCULAR: The patient is slightly tachycardic, but otherwise no murmurs, rubs, or gallops, and PMI is nondisplaced. ABDOMEN: Soft, nontender, with active bowel sounds and no organomegaly. EXTREMITIES: No edema. Normal distal pulses. No calf tenderness. SKIN: Clean, dry, warm, and intact. LABORATORY DATA: Sodium is 133, potassium 4.6, chloride 95, BUN 42, creatinine 1.81, glucose 184, calcium 8.7, magnesium 2.7. White blood cell count is 14.2, hemoglobin 9.3, platelets 308, INR is 1.3. Troponin is 4.53. ABG: His pH is 7.49, pCO2 of 33, pO2 of 60, and oxygen saturation of 89.3% on room air. IMAGING: Chest x-ray is personally interpreted and it shows severe congestive heart failure changes. ASSESSMENT: This is an 81-year-old gentleman with history of congestive heart failure, presenting with an acute on chronic congestive heart failure exacerbation. 1. Acute on chronic systolic congestive heart failure exacerbation, baseline ejection fraction of 25%. 2. Acute hypoxic respiratory failure secondary to above. 3. Elevated troponin level of 4.53 without any chest pain. 4. Chronic kidney disease with creatinine of 2 to 2.5 at baseline. The patient's creatinine today is 1.8. 5. Chronic atrial fibrillation for which he is not anticoagulated. 6. Hypertension. 7. Diabetes type 2. 8. Peptic ulcer disease. 9. Osteoarthritis. 10.Protein-calorie malnutrition for which the patient is dependent on PEG. The patient does not have issues with dysphagia and the patient is able to tolerate p.o. intake, just not enough. The patient has bolus dosing at baseline. PLAN: My plan is to admit the patient under telemetry monitoring. The patient will be given oxygen support and bronchodilator therapy. The patient will be given IV Lasix diuresis. In's and out's will be closely monitored as well as electrolytes and daily renal function. I will also monitor his daily weights. I will trend his serial troponins and I will continue heparin drip that was started in the ER. I will ask Cardiology to evaluate the patient. Otherwise, for the rest of stable past medical conditions, including hypertension, diabetes, chronic kidney disease, peptic ulcer disease, et al., I will continue home medications. Standard DVT prophylaxis. The patient is full code at this time. History And Physical [address] [place]. [address] NAME: DOC GREENBERG : 37 STATUS : ADM IN PAT#: [id number] AGE: 81 ADM/REG DATE : 11/17/16 MR#: [id number] REPORT SERV DATE: 11/17/16 DICTATED BY: CHARLY LOREDO DATE: 11/17/16 REPORT STATUS : Draft TRANSCRIBED BY: CRYSTAL DATE: 11/17/16 [facility] [place] Charly Loredo MD / [id number] CC: Charly Loredo MD UNKNOWN
[2016-11-17 10:04] LABS: BASOPHILS 0.1 %; BASOPHILS ABSOLUTE 0.01 10/3/uL (0.0-0.16); EOSINOPHILS 0.2 %; EOSINOPHILS ABSOLUTE 0.03 10/3/uL (0.0-0.53); HEMATOCRIT 28.3 % (40.0-51.0); HEMOGLOBIN 9.3 g/dL (13.6-17.8); IMMATURE GRANULOCYTES 0.3 %; IMMATURE GRANULOCYTES ABSOLUTE 0.04 10/3/uL (0.0-0.11); LYMPHOCYTES 17.5 %; LYMPHOCYTES ABSOLUTE 2.48 10/3/uL (0.67-4.30); MEAN CORPUS HGB CONC 32.9 g/dL (32.0-36.0); MEAN CORPUSCULAR HEMOGLOB 32.5 pg (26.0-34.0); MEAN PLATELET VOLUME 8.5 fL (9.2-13.0); MONOCYTES 8.1 %; MONOCYTES ABSOLUTE 1.15 10/3/uL (0.21-1.20); NEUTROPHILS 73.8 %; NEUTROPHILS ABSOLUTE 10.47 10/3/uL (2.02-8.40); PLATELET COUNT 308 10/3/uL (150-400); RBC DISTRIBUTION WIDTH 16.8 % (12.0-16.0); RED CELL COUNT 2.86 10/6/uL (4.7-6.1)
[2016-11-17 10:05] LABS: ER CBC TAT 0 Hrs 05 Mins; MANUAL DIFF NO %; WHITE BLOOD CELLS 14.2 10/3/uL (4.5-10.5)
[2016-11-17 10:07] LABS: BE (BASE EXCESS) 1.4 MEQ/L (0 +/- 2.5); INSTRUMENT SERIAL # 8087; PCO2 (CO2 TENSION) 33 MMHG (35-45); PO2 (O2 TENSION) 60 MMHG (79-93); pH 7.49 (7.37-7.43)
[2016-11-17 10:08] LABS: ALLENS TEST Pos; CARBOXYHEMOGLOBIN 1.5 % (0-3); HCO3 (ACTUAL BICARBONATE) 24.4 MEQ/L (23-27); HEMOBLOGIN CONTENT 9.7 G/DL (14-18); METHEMOGLOBIN 0.2 % (0-3); SAMPLE Arterial
[2016-11-17 10:12] LABS: INTERNATIONAL NORMAL RATI 1.3 UNITS (-); PARTIAL THROMBO TIME 30.9 SEC (22.5-37.2); PROTIME (NOT ORD) 15.6 SEC (12.0-14.5)
[2016-11-17 10:22] LABS: CALCIUM, SERUM 8.7 MG/DL (8.5-10.4); CHLORIDE, SERUM 95 MMOL/L (96-112); CO2 (CARBON DIOXIDE) 31 MMOL/L (24-34)
[2016-11-17 10:23] LABS: BUN (BLOOD UREA NITROGEN) 42 MG/DL (6-23); CHEST PAIN PROFILE TAT 0 Hrs 23 Mins; CREATININE 1.81 MG/DL (0.70-1.30); GFR AFRICAN AMERICAN 40 ML/MIN (>=60); GFR NON AFRICAN AMERICAN 35 ML/MIN (>=60); GLUCOSE, SERUM 184 MG/DL (60-99); POTASSIUM, SERUM 4.6 MMOL/L (3.5-5.3); SODIUM, SERUM 133 MMOL/L (135-148); TROPONIN I 4.53 NG/ML (<0.05)
[2016-11-17] MEDS ORDERED: TOPXL25 PO (10:49)
[2016-11-17] MEDS ORDERED: NOVOLOG SC (10:52)
[2016-11-17] MEDS ORDERED: MIRALAX POWDER1 PKT PO (10:53)
[2016-11-17] MEDS ORDERED: DEMA20 PO (10:54)
[2016-11-17] MEDS ORDERED: 8 HOUR650 MG PO (10:54)
[2016-11-17] MEDS ORDERED: ALBUTEROL0.083 % INH (10:55)
[2016-11-17] MEDS ORDERED: BISR PR (10:55)
[2016-11-17] MEDS ORDERED: ATV.5 PO (10:55)
[2016-11-17] MEDS ORDERED: NITROSTAT0.4 MG SL (10:56)
[2016-11-17] MEDS ORDERED: ZOFRAN4 PO (10:57)
[2016-11-17 15:24] LABS: B NATRIURETIC PEPTIDE (BNP) 1408.7 PG/ML (< 100.0)
[2016-11-17 15:28] LABS: TROPONIN I 4.69 NG/ML (<0.05); ULTRASENSITIVE TSH 5.44 MCIU/ML (0.358-3.740)
[2016-11-17 15:52] LABS: PROCALCITONIN 0.43 ng/mL (<0.5)
[2016-11-17 22:02] LABS: GLYCOHEMOGLOBIN (HbA1c) 6.3 % (4.7-6.1)
[2016-11-18 06:34] LABS: BASOPHILS 0.2 %; BASOPHILS ABSOLUTE 0.03 10/3/uL (0.0-0.16); EOSINOPHILS 0.5 %; EOSINOPHILS ABSOLUTE 0.06 10/3/uL (0.0-0.53); HEMATOCRIT 29.3 % (40.0-51.0); HEMOGLOBIN 9.2 g/dL (13.6-17.8); IMMATURE GRANULOCYTES 0.4 %; IMMATURE GRANULOCYTES ABSOLUTE 0.05 10/3/uL (0.0-0.11); LYMPHOCYTES 17.7 %; LYMPHOCYTES ABSOLUTE 2.13 10/3/uL (0.67-4.30); MEAN CORPUS HGB CONC 31.4 g/dL (32.0-36.0); MEAN CORPUSCULAR HEMOGLOB 31.4 pg (26.0-34.0); MONOCYTES 8.6 %; MONOCYTES ABSOLUTE 1.04 10/3/uL (0.21-1.20); NEUTROPHILS 72.6 %; NEUTROPHILS ABSOLUTE 8.75 10/3/uL (2.02-8.40); PLATELET COUNT 372 10/3/uL (150-400); RBC DISTRIBUTION WIDTH 16.8 % (12.0-16.0); RED CELL COUNT 2.93 10/6/uL (4.7-6.1); WHITE BLOOD CELLS 12.1 10/3/uL (4.5-10.5)
[2016-11-18 06:35] LABS: MANUAL DIFF NO %
[2016-11-18 06:48] LABS: CHLORIDE, SERUM 96 MMOL/L (96-112); CO2 (CARBON DIOXIDE) 30 MMOL/L (24-34); CREATININE 1.97 MG/DL (0.70-1.30); GFR AFRICAN AMERICAN 36 ML/MIN (>=60); GFR NON AFRICAN AMERICAN 31 ML/MIN (>=60); GLUCOSE, SERUM 197 MG/DL (60-99); POTASSIUM, SERUM 4.2 MMOL/L (3.5-5.3); SODIUM, SERUM 135 MMOL/L (135-148)
[2016-11-18 06:49] LABS: BUN (BLOOD UREA NITROGEN) 46 MG/DL (6-23); TROPONIN I 5.12 NG/ML (<0.05)
[2016-11-19 02:12] LABS: BASOPHILS 0.1 %; BASOPHILS ABSOLUTE 0.01 10/3/uL (0.0-0.16); EOSINOPHILS 1.2 %; EOSINOPHILS ABSOLUTE 0.12 10/3/uL (0.0-0.53); HEMATOCRIT 27.8 % (40.0-51.0); HEMOGLOBIN 9.1 g/dL (13.6-17.8); IMMATURE GRANULOCYTES 0.3 %; IMMATURE GRANULOCYTES ABSOLUTE 0.03 10/3/uL (0.0-0.11); LYMPHOCYTES 15.6 %; LYMPHOCYTES ABSOLUTE 1.55 10/3/uL (0.67-4.30); MEAN CORPUS HGB CONC 32.7 g/dL (32.0-36.0); MEAN CORPUSCULAR HEMOGLOB 32.2 pg (26.0-34.0); MEAN CORPUSCULAR VOLUME 98.2 fL (80-100); MEAN PLATELET VOLUME 8.6 fL (9.2-13.0); MONOCYTES 6.4 %; MONOCYTES ABSOLUTE 0.64 10/3/uL (0.21-1.20); NEUTROPHILS 76.4 %; PLATELET COUNT 301 10/3/uL (150-400); RBC DISTRIBUTION WIDTH 16.4 % (12.0-16.0); RED CELL COUNT 2.83 10/6/uL (4.7-6.1)
[2016-11-19 02:14] LABS: MANUAL DIFF NO %
[2016-11-19 02:26] LABS: BUN (BLOOD UREA NITROGEN) 52 MG/DL (6-23); CALCIUM, SERUM 8.6 MG/DL (8.5-10.4); CHLORIDE, SERUM 96 MMOL/L (96-112); CO2 (CARBON DIOXIDE) 33 MMOL/L (24-34); CREATININE 1.95 MG/DL (0.70-1.30); GFR AFRICAN AMERICAN 37 ML/MIN (>=60); GFR NON AFRICAN AMERICAN 32 ML/MIN (>=60); GLUCOSE, SERUM 226 MG/DL (60-99); POTASSIUM, SERUM 3.8 MMOL/L (3.5-5.3); SODIUM, SERUM 136 MMOL/L (135-148)
== END 2016-11-20 15:53 | disposition hospice, home (50) | DRG 280 ==
LOC: ER 09:09 → 7NO 11:15
PROVIDERS: Hospitalist; Internal Medicine
DX: I13.0 Hypertensive heart and chronic kidney disease with heart failure and stage 1 through stage 4 chronic kidney disease, or unspecified chronic kidney disease (principal); I50.23 Acute on chronic systolic (congestive) heart failure; I21.4 Non-ST elevation (NSTEMI) myocardial infarction; J96.01 Acute respiratory failure with hypoxia; E11.22 Type 2 diabetes mellitus with diabetic chronic kidney disease; I48.2 Chronic atrial fibrillation; Z93.1 Gastrostomy status; E44.0 Moderate protein-calorie malnutrition; K27.9 Peptic ulcer, site unspecified, unspecified as acute or chronic, without hemorrhage or perforation; E78.5 Hyperlipidemia, unspecified; Z51.5 Encounter for palliative care; I25.5 Ischemic cardiomyopathy; I25.10 Atherosclerotic heart disease of native coronary artery without angina pectoris; N18.9 Chronic kidney disease, unspecified; M19.90 Unspecified osteoarthritis, unspecified site; Z68.20 Body mass index [BMI] 20.0-20.9, adult; Z68.25 Body mass index [BMI] 25.0-25.9, adult; Z66 Do not resuscitate
CPT/HCPCS: 36600; 71010; 80048; 82805; 82962; 83036; 83735; 83880; 84145; 84443; 84484; 85025; 85610; 85730; 93005; 94640; 96374; 99291; A9270-GY; C9113